=== PATIENT | female | born 1965 | race African-American/Black ===

== ENCOUNTER 2018-07-19 16:16 | Emergency (ER) | payer OTHER ==
[~2018-07-19] VITALS: Ht 160 cm; Wt 79.4 kg
--- OUTSIDE RECORDS SUMMARY | 2018-07-19 16:19 | XMS REPORT | Clinical Summary ---
Author Author [facility] Organization [facility] Address Unknown Phone Unavailable Care Team Providers Care Melt Room Operator Name Role Phone Asked, No Pcp PCP Unavailable Allergies No Known Allergies Medications End Date Status Medication Sig Dispensed Refills Start Date 07/07/2018 cephalexin (KEFLEX) 500 Take 1 14 capsule 0 201 MG capsule capsule (500 8 mg total) by mouth 2 (two) times a day for 7 days. Active Problems Not on file Encounters Care Team Description Date Type Specialty Tapan Leiva MD Altered mental status, unspecified altered mental status type (Primary Dx); Alcoholic intoxication without complication (HCC); Possible Acute UTI 06/29/2018 Emergency Emergency Medicine - 06/30/2018 after 07/18/2017 Social History Date Tobacco Use Types Packs/Day Years Used Never Smoker Smokeless Tobacco: Never Used Alcohol Use Drinks/Week oz/Week Comments Yes pt had 5 shots of gin tonight Sex Assigned at Date Recorded Not on file Industry Job Start Date Occupation Not on file Not on file Not on file Travel End Travel History Travel Start No recent travel history available. Last Filed Vital Signs Time Taken Vital Sign Reading 06/30/2018 3:00 AM DEPENDENCY DIRECTOR Blood Pressure 128/70 06/30/2018 3:00 AM DEPENDENCY DIRECTOR Pulse 76 06/30/2018 1:48 AM DEPENDENCY DIRECTOR Temperature 36.4 C (97.5 F) 06/30/2018 3:00 AM DEPENDENCY DIRECTOR Respiratory Rate 17 06/30/2018 3:00 AM DEPENDENCY DIRECTOR Oxygen Saturation 98% - Inhaled Oxygen - Concentration - Weight - 06/29/2018 11:52 PM DEPENDENCY DIRECTOR Height 160 cm (5' 3") - Body Mass Index - Plan of Treatment Health Maintenance Due Date Last Done Comments CERVICAL CANCER SCREENING 1985 BREAST CANCER SCREENING 2014 COLON CANCER SCREENING 2014 SHINGRIX VACCINE (1 of 2) 2014 INFLUENZA VACCINE 03/13/2018 HEPATITIS B VACCINES Aged Out No longer eligible based on patient's age to complete this topic IPV VACCINES Aged Out No longer eligible based on patient's age to complete this topic MENINGOCOCCAL VACCINE Aged Out No longer eligible based on patient's age to complete this topic Procedures Comments Procedure Name Priority Date/Time Associated Diagnosis CT HEAD WO CONTRAST STAT 06/30/2018 1:44 AM DEPENDENCY DIRECTOR URINE DRUGS OF ABUSE STAT 06/30/2018 SCREEN 1:15 AM DEPENDENCY DIRECTOR URINALYSIS SCREEN AND STAT 06/30/2018 MICROSCOPY, WITH REFLEX 1:15 AM DEPENDENCY DIRECTOR TO CULTURE GRAM STAIN STAT 06/30/2018 1:15 AM DEPENDENCY DIRECTOR URINE CULTURE STAT 06/30/2018 1:15 AM DEPENDENCY DIRECTOR ECG ED PRELIMINARY Routine 06/30/2018 INTERPRETATION 12:40 AM DEPENDENCY DIRECTOR POC GLUCOSE Routine 06/29/2018 11:56 PM DEPENDENCY DIRECTOR ECG 12-LEAD STAT 06/29/2018 11:54 PM DEPENDENCY DIRECTOR ALCOHOL LEVEL, BLOOD STAT 06/29/2018 11:50 PM DEPENDENCY DIRECTOR HCG QUALITATIVE, SERUM STAT 06/29/2018 SCREEN 11:50 PM DEPENDENCY DIRECTOR TROPONIN STAT 06/29/2018 11:50 PM DEPENDENCY DIRECTOR ESTIMATED GFR STAT 06/29/2018 11:50 PM DEPENDENCY DIRECTOR COMPREHENSIVE METABOLIC STAT 06/29/2018 PANEL 11:50 PM DEPENDENCY DIRECTOR HC COMPLETE BLD COUNT STAT 06/29/2018 W/AUTO DIFF 11:50 PM DEPENDENCY DIRECTOR after 07/18/2017 Results * CT Head Wo Contrast (06/30/2018 1:44 AM DEPENDENCY DIRECTOR) Narrative Performed At EXAMINATION: CT HEAD WO CONTRAST [facility] CLINICAL HISTORY: AMSEtOH usepossible fall injury COMPARISON:None. TECHNIQUE: Noncontrast enhanced images of the brain were obtained from the skull base to the vertex. Both soft tissue and bone reconstruction algorithms were performed. CT scans are performed using radiation dose reduction techniques (iterative reconstruction and/or automated exposure control). Technical factors are evaluated and adjusted to ensure appropriate moderation of exposure. Automated dose management technology is applied to adjust radiation exposure while achieving a diagnostic quality image. FINDINGS: Mild generalized brain parenchymal volume loss. Nonspecific hypoattenuation of the supratentorial white matter, likely chronic microangiopathic changes. Mild cerebrovascular calcifications. The brain parenchyma is otherwise unremarkable. The carlisle-white matter differentiation is preserved. No evidence of acute intra or extra-axial hemorrhage, mass, mass effect or acute territorial infarction. There is no acute hydrocephalus. Basal cisterns are patent. No acute soft tissue hematoma or laceration. No skull fractures or aggressive bony lesions. Paranasal sinuses and mastoid air cells are clear. Orbits are normal. IMPRESSION: No acute intracranial abnormality identified. [facility]-[id number] Procedure Note Hm Interface, Radiology Results Incoming - 06/30/2018 1:49 AM DEPENDENCY DIRECTOR EXAMINATION: CT HEAD WO CONTRAST CLINICAL HISTORY: AMS EtOH use possible fall injury COMPARISON: None. TECHNIQUE: Noncontrast enhanced images of the brain were obtained from the skull base to the vertex. Both soft tissue and bone reconstruction algorithms were performed. CT scans are performed using radiation dose reduction techniques (iterative reconstruction and/or automated exposure control). Technical factors are evaluated and adjusted to ensure appropriate moderation of exposure. Automated dose management technology is applied to adjust radiation exposure while achieving a diagnostic quality image. FINDINGS: Mild generalized brain parenchymal volume loss. Nonspecific hypoattenuation of the supratentorial white matter, likely chronic microangiopathic changes. Mild cerebrovascular calcifications. The brain parenchyma is otherwise unremarkable. The carlisle-white matter differentiation is preserved. No evidence of acute intra or extra-axial hemorrhage, mass, mass effect or acute territorial infarction. There is no acute hydrocephalus. Basal cisterns are patent. No acute soft tissue hematoma or laceration. No skull fractures or aggressive bony lesions. Paranasal sinuses and mastoid air cells are clear. Orbits are normal. IMPRESSION: No acute intracranial abnormality identified. [facility]-[id number] Performing Organization Address City/State/Zipcode Phone Number [facility] [address] [place] [address] * Urinalysis screen and microscopy, with reflex to culture (06/30/2018 1:15 AM DEPENDENCY DIRECTOR) Specimen site Catheterized [facility] Color, UA Straw [facility] Appearance, UA Clear [facility] Specific gravity, UA 1.004 1.001 - 1.030 [facility] pH, UA 6.0 5.0 - 9.0 [facility] Protein, UA Negative Negative [facility] Glucose, UA Negative Negative [facility] Ketones, UA Negative Negative [facility] Bilirubin, UA Negative Negative [facility] Blood, UA Small (A) Negative [facility] Nitrite, UA Negative Negative [facility] Urobilinogen, UA <2.0 <2.0 E.U./dL [facility] Leukocyte esterase, UA Moderate (A) Negative [facility] Epithelial cells, UA 3 /HPF [facility] WBC, UA 3 0 - 4 /HPF [facility] RBC, UA 3 0 - 5 /HPF [facility] Bacteria, UA Moderate (A) None seen [facility] Yeast, UA None seen [facility] Yeast with pseudohyphae, None seen [facility] Specimen Urine Performing Organization Address City/State/Zipcode Phone Number [facility] [place] [address] [place] [address] PATHOLOGY AND GENOMIC MEDICINE [facility] [id number] [place] [address] * Urine drugs of abuse screen (06/30/2018 1:15 AM DEPENDENCY DIRECTOR) Amphetamine screen, urine Negative [facility] Barbiturate screen, urine Negative [facility] Benzodiazepine screen, Negative [facility] urine [facility] Cannabinoid screen, urine Negative [facility] Cocaine screen, urine Negative [facility] Methadone metabolite Negative [facility] (EDDP), urine [facility] Opiates screen, urine Negative [facility] Phencyclidine screen, Negative [facility] urine [facility] Tricyclic screen, urine Negative [facility] Comment: [facility] Drug screen minimum concentration of detectability Amphetamines 1000 ng/mL Barbiturates 200 ng/mL Benzodiazepines 300 ng/mL Cocaine 300 ng/mL Methadone 300 ng/mL Opiates 300 ng/mL Phencyclidine 25 ng/mL Cannabinoids 50 ng/mL Tricyclics 1000 ng/mL Negative test results indicates presumptive evidence of lack of clinically significant drug concentration in this urine specimen. Positive test results are presumptive evidence of clinically significant drug concentration in this urine specimen. Testing performed for medical purposes only. Specimen Urine Performing Organization Address City/State/Zipcode Phone Number [facility] [place] [address] [place] [address] PATHOLOGY AND GENOMIC MEDICINE [facility] [address] * Gram stain (06/30/2018 1:15 AM DEPENDENCY DIRECTOR) Gram stain result Occasional WBC's [facility] Many Gram positive rods [facility] Comment: Specimen Information Specimen Source: Urine Specimen Site: Catheterized Specimen Urine - Catheterized Performing Organization Address City/[facility] Phone Number [facility] DEPARTMENT OF [address] [place] [address] PATHOLOGY AND GENOMIC MEDICINE [address] * Urine culture (06/30/2018 1:15 AM DEPENDENCY DIRECTOR) Urine culture isolate Mixed keyon <=10-3 col/cc [facility] Comment: HOSPITAL Specimen Information Specimen Source: Urine Specimen Site: Catheterized Specimen Urine - Catheterized Performing Organization Address [facility] Phone Number [facility] DEPARTMENT OF [address] [place] [address] PATHOLOGY AND GENOMIC MEDICINE [address] * ECG ED Preliminary Interpretation - Not an Order (06/30/2018 12:40 AM DEPENDENCY DIRECTOR) Narrative Performed At Tapan Leiva MD 07/01/20185:12 AM ECG ED Preliminary Interpretation - Not an Order Performed by: Tapan Leiva MD Authorized by: Tapan Leiva MD ECG reviewed by ED Physician in the absence of a glass cutter: yes Rate: ECG rate:66 ECG rate assessment: normal Rhythm: Rhythm: sinus rhythm Ectopy: Ectopy: none QRS: QRS axis:Normal Conduction: Conduction: normal ST segments: ST segments:Normal T waves: T waves: normal * POC glucose (06/29/2018 11:56 PM DEPENDENCY DIRECTOR) POC glucose 98 65 - 99 mg/dL LEONCIO WISEMAN Comment: [facility] Meter ID: [id number] Taxi Proprietor: Cristo Curlynicola Performing Organization Address City/[facility]/Zipcode Phone Number [facility] DEPARTMENT OF [address] [place] [address] PATHOLOGY AND GENOMIC MEDICINE [address] * ECG 12 lead (06/29/2018 11:54 PM DEPENDENCY DIRECTOR) Ventricular rate 66 [facility] Atrial rate 66 [facility] UT interval 188 [facility] QRSD interval 72 [facility] QT interval 390 [facility] QTC interval 408 [facility] P axis 1 58 [facility] QRS axis 1 27 [facility] T wave axis 27 [facility] EKG impression Sinus rhythm with fusion [facility] MUSE complexes-Cannot rule out Anterior infarct , age undetermined-Abnormal ECG-No previous ECGs available- Narrative Performed At Performing Organization Address [facility] Centercode Phone Number [facility] [address] [place] [address] * Estimated GFR (06/29/2018 11:50 PM DEPENDENCY DIRECTOR) Estimated GFR >=90 mL/min/1.73 m2 [facility] Comment: [facility] CatergoryUnitsInte rpretation G1 >=90 Normal or high G2 60-89Mildly decreased [id number] Mildly to moderately decreased [id number] Moderately to severely decreased G4 15-29Severely decreased G5 <15Kidney failure The eGFR was calculated using the Chronic Kidney Disease Epidemiology Collaboration (CKD-EPI) equation. Interpretation is based on recommendations of the National Kidney Foundation-Kidney Disease Outcomes Quality Initiative (NKF-KDOQI) published in 2014. Corrected result; previously reported as 86 on 06/30/2018 at 01:31 by I/AUT Specimen Plasma specimen Performing Organization Address City/[facility]/Zipcode Phone Number [facility] [place] [address] PATHOLOGY AND GENOMIC MEDICINE [address] * Troponin (06/29/2018 11:50 PM DEPENDENCY DIRECTOR) Troponin <0.30 0.00 - 0.30 ng/mL [facility] Comment: [facility] 0.11 - 1.49 ng/mlMay indicate increased risk of acute coronary syndrome. >=1.5 ng/ml Consistent with acute myocardial infarction. The diagnostic value of a single normal or non-diagnostic result is questionable.Serial samples at 2-6 hour intervals are required to rule out acute myocardial injury. Specimen Plasma specimen Performing Organization Address City/[facility]/[place] [address] PATHOLOGY AND GENOMIC MEDICINE [address] * CBC with platelet and differential (06/29/2018 11:50 PM DEPENDENCY DIRECTOR) WBC 11.4 (H) 4.5 - 11.0 k/uL [facility] RBC 4.30 4.20 - 5.50 m/uL [facility] HGB 12.4 12.0 - 16.0 g/dL [facility] HCT 38.7 37.0 - 47.0 % [facility] MCV 90.0 82.0 - 100.0 fL [facility] MCH 28.8 27.0 - 34.0 pg [facility] MCHC 32.0 31.0 - 37.0 g/dL [facility] RDW - SD 39.7 37.0 - 55.0 fL [facility] MPV 9.8 6.9 - 11.0 fL [facility] Platelet count 281 150 - 400 K/uL [facility] Nucleated RBC 0.00 /100 WBC [facility] Neutrophils 88.1 (H) 39.0 - 69.0 % [facility] Lymphocytes 8.9 (L) 25.0 - 45.0 % [facility] Monocytes 2.5 0.0 - 10.0 % [facility] Eosinophils 0.0 0.0 - 5.0 % [facility] Basophils 0.1 0.0 - 1.0 % [facility] Immature granulocytes 0.4 0.0 - 1.0 % [facility] Specimen Blood Performing Organization Address City/[facility]/Zipcode Phone Number [facility] [place] [id number] [place] [address] PATHOLOGY AND GENOMIC MEDICINE [address] * hCG qualitative, serum screen (06/29/2018 11:50 PM DEPENDENCY DIRECTOR) hCG qualitative, serum NegativeComment: Sensitivity [facility] of HCG test: 25 mIU/mL [facility] Specimen Blood Performing Organization Address City/State/[facility] Centercode Phone Number [facility] [place] [address] PATHOLOGY AND GENOMIC MEDICINE [address] * Alcohol level, blood (06/29/2018 11:50 PM DEPENDENCY DIRECTOR) Alcohol 126.0 mg/dL [facility] Comment: [facility] Normal None Detected Legal Intoxication in [place]80 mg/dL (0.08%) - Whole Blood Toxic Concentration 200 mg/dL (0.2%) Potentially Fatal3 50 - 500 mg/dL (0.35 - 0.5%) Alcohol percent 0.126 % [facility] Specimen Plasma specimen Performing Organization Address City/State/[facility] Centercode Phone Number [facility] [place] [address] PATHOLOGY AND GENOMIC MEDICINE [address] * Comprehensive metabolic panel (06/29/2018 11:50 PM DEPENDENCY DIRECTOR) Sodium 140 135 - 148 mEq/L [facility] Potassium 3.8 3.5 - 5.0 mEq/L [facility] Chloride 102 98 - 112 mEq/L [facility] CO2 24 24 - 31 mEq/L [facility] Anion gap 14@ANIO 7 - 15 mEq/L [facility] BUN 13 6 - 20 mg/dL [facility] Creatinine 0.78 0.50 - 0.90 mg/dL [facility] Glucose 99 65 - 99 mg/dL [facility] Calcium 9.9 8.3 - 10.2 mg/dL [facility] Protein 7.5 6.3 - 8.3 g/dL [facility] Albumin 4.3 3.5 - 5.0 g/dL [facility] A/G ratio 1.3 0.7 - 3.8 [facility] Alkaline phosphatase 58 35 - 104 U/L [facility] AST 33 10 - 35 U/L [facility] ALT 23 5 - 50 U/L [facility] Total bilirubin <0.2 0.2 - 1.2 mg/dL [facility] Specimen Plasma specimen Performing Organization Address City/State/Zipcode Phone Number [facility] [place] [address] [place] [address] PATHOLOGY AND GENOMIC MEDICINE [facility] [address] after 07/18/2017 Insurance Payer Benefit Subscriber ID Type Phone Address Plan / Group xxxxxxxxx [employer] Advance Directives Patient has advance care planning documents on file. For more information, caron marcos contact: Leoncio Wiseman [address] [place] [address]
--- OUTSIDE RECORDS SUMMARY | 2018-07-19 16:19 | XMS REPORT ---
Author Author [facility] Address Unknown Phone Unavailable Care Team Providers Care Delicatessen Slicer Name Role Phone UNKNOWN, REFFERING PP Unavailable Payers Payer Name Policy Type Policy Number Effective Date Expiration Date Problems This patient has no known problems. Allergies, Adverse Reactions, Alerts Allergy Name Allergy Type Status Severity Reaction(s) Onset Date Inactive Date Treating Clinician Comments No Known Allergies DA Active U 2018-06-27 00:00:00 No Known Allergies DA Active U 2018-06-09 00:00:00 Medications This patient has no known medications. Encounters Start Date/Time End Date/Time Encounter Type Admission Type Attending Clinicians Care Facility Care Department Encounter ID 2016-12-23 13:40:00 2016-12-23 13:40:00 Emergency E [facility] MED [id number]
== END 2018-07-19 17:30 | disposition home or self-care (01) ==
LOC: FSED 16:16
DX: M72.2 Plantar fascial fibromatosis (principal)
CPT/HCPCS: 99283

== ENCOUNTER 2018-08-15 16:34 | Emergency (ER) | payer OTHER ==
[~2018-08-15] VITALS: Ht 160 cm; Wt 65.8 kg
--- OUTSIDE RECORDS SUMMARY | 2018-08-15 16:36 | XMS REPORT | Clinical Summary ---
Author Author [facility] Organization [facility] Address Unknown Phone Unavailable Care Team Providers [employer] Mechanic Name Role Phone Asked, No Pcp PCP [...] 06/29/2018 Emergency Emergency Medicine - 06/30/2018 after 08/14/2017 Social History Date Tobacco Use Types Packs/Day [...] Taken Vital Sign Reading 06/30/2018 3:00 AM DOCUMENT CLERK Blood Pressure 128/70 06/30/2018 3:00 AM DOCUMENT CLERK Pulse 76 06/30/2018 1:48 AM DOCUMENT CLERK Temperature 36.4 C (97.5 F) 06/30/2018 3:00 AM DOCUMENT CLERK Respiratory Rate 17 06/30/2018 3:00 AM DOCUMENT CLERK Oxygen Saturation 98% - Inhaled Oxygen - Concentration - Weight - 06/29/2018 11:52 PM DOCUMENT CLERK Height 160 cm (5' 3") - Body Mass Index - Plan of Treatment Health Maintenance Due Date Last Done Comments CERVICAL CANCER SCREENING 1985 BREAST CANCER SCREENING 2014 COLON CANCER SCREENING 2014 SHINGLES VACCINES (1 of 2014 2) INFLUENZA VACCINE 03/13/2018 Procedures Comments Procedure Name Priority Date/Time Associated Diagnosis CT HEAD WO CONTRAST STAT 06/30/2018 1:44 AM DOCUMENT CLERK URINE DRUGS OF ABUSE STAT 06/30/2018 SCREEN 1:15 AM DOCUMENT CLERK URINALYSIS SCREEN AND STAT 06/30/2018 MICROSCOPY, WITH REFLEX 1:15 AM DOCUMENT CLERK TO CULTURE GRAM STAIN STAT 06/30/2018 1:15 AM DOCUMENT CLERK URINE CULTURE STAT 06/30/2018 1:15 AM DOCUMENT CLERK ECG ED PRELIMINARY Routine 06/30/2018 INTERPRETATION 12:40 AM DOCUMENT CLERK POC GLUCOSE Routine 06/29/2018 11:56 PM DOCUMENT CLERK ECG 12-LEAD STAT 06/29/2018 11:54 PM DOCUMENT CLERK ALCOHOL LEVEL, BLOOD STAT 06/29/2018 11:50 PM DOCUMENT CLERK HCG QUALITATIVE, SERUM STAT 06/29/2018 SCREEN 11:50 PM DOCUMENT CLERK TROPONIN STAT 06/29/2018 11:50 PM DOCUMENT CLERK ESTIMATED GFR STAT 06/29/2018 11:50 PM DOCUMENT CLERK COMPREHENSIVE METABOLIC STAT 06/29/2018 PANEL 11:50 PM DOCUMENT CLERK HC COMPLETE BLD COUNT STAT 06/29/2018 W/AUTO DIFF 11:50 PM DOCUMENT CLERK after 08/14/2017 Results * CT Head Wo Contrast (06/30/2018 1:44 AM DOCUMENT CLERK) Narrative Performed At EXAMINATION: CT HEAD WO [...] normal. IMPRESSION: No acute intracranial abnormality identified. [facility]-[id number] Procedure Note Interface, Radiology Results Incoming - 06/30/2018 1:49 AM DOCUMENT CLERK EXAMINATION: CT HEAD WO CONTRAST CLINICAL HISTORY: [...] normal. IMPRESSION: No acute intracranial abnormality identified. [facility]-[id number] Performing Organization Address City/State/Zipcode Phone Number [facility] [address] [place] [address] * Urinalysis screen and microscopy, with reflex to culture (06/30/2018 1:15 AM DOCUMENT CLERK) Specimen site Catheterized [facility] Color, UA Straw [facility] Appearance, UA Clear [facility] Specific gravity, UA 1.004 1.001 - 1.030 [facility] pH, UA 6.0 5.0 - 9.0 [facility] Protein, UA Negative Negative [facility] Glucose, UA Negative Negative [facility] Ketones, UA Negative Negative [facility] Bilirubin, UA Negative Negative [facility] Blood, UA Small (A) Negative [facility] Nitrite, UA Negative Negative [facility] Urobilinogen, UA <2.0 <2.0 E.U./dL [facility] Leukocyte esterase, UA Moderate (A) Negative [facility] Epithelial cells, UA 3 /HPF [facility] WBC, UA 3 0 - 4 /HPF [facility] RBC, UA 3 0 - 5 /HPF [facility] Bacteria, UA Moderate (A) None seen [facility] Yeast, UA None seen [facility] Yeast with pseudohyphae, None seen [facility] Specimen Urine Performing Organization Address City/State/Zipcode Phone Number [facility] [place] [address] [place] [address] PATHOLOGY AND GENOMIC MEDICINE [facility] [id number] [place] [address] * Urine drugs of abuse screen (06/30/2018 1:15 AM DOCUMENT CLERK) Amphetamine screen, urine Negative [facility] Barbiturate screen, urine Negative [facility] Benzodiazepine screen, Negative [facility] urine [facility] Cannabinoid screen, urine Negative [facility] Cocaine screen, urine Negative [facility] Methadone metabolite Negative [facility] (EDDP), urine [facility] Opiates screen, urine Negative [facility] Phencyclidine screen, Negative [facility] urine [facility] Tricyclic screen, urine Negative [facility] Comment: [facility] Drug screen minimum concentration of detectability Amphetamines [...] purposes only. Specimen Urine Performing Organization Address [facility] Phone Number [facility] DEPARTMENT OF [address] [place] [address] PATHOLOGY AND GENOMIC MEDICINE [address] * Gram stain (06/30/2018 1:15 AM DOCUMENT CLERK) Gram stain result Occasional WBC's [facility] Many Gram positive rods [facility] Comment: Specimen Information Specimen Source: Urine Specimen Site: Catheterized Specimen Urine - Catheterized Performing Organization Address [facility] Phone Number [facility] DEPARTMENT OF [address] [place] [address] PATHOLOGY AND GENOMIC MEDICINE [address] * Urine culture (06/30/2018 1:15 AM DOCUMENT CLERK) Urine culture isolate Mixed keyon <=10-3 col/cc LEONC[facility] WISEMAN Comment: HOSPITAL Specimen Information Specimen Source: Urine Specimen Site: Catheterized Specimen Urine - Catheterized Performing Organization Address [facility] Phone Number [facility] DEPARTMENT OF [address] [place] [address] PATHOLOGY AND GENOMIC MEDICINE [address] * ECG ED Preliminary Interpretation - Not an Order (06/30/2018 12:40 AM DOCUMENT CLERK) Narrative Performed At Tapan Leiva MD 07/01/20185:12 AM ECG ED Preliminary Interpretation - Not an Order Performed by: Tapan Leiva MD Authorized by: Tapan Leiva MD ECG reviewed by ED Physician in the absence of a family practice physician: yes Rate: ECG rate:66 ECG rate assessment: normal Rhythm: Rhythm: sinus rhythm Ectopy: Ectopy: none QRS: QRS axis:Normal Conduction: Conduction: normal ST segments: ST segments:Normal T waves: T waves: normal * POC glucose (06/29/2018 11:56 PM DOCUMENT CLERK) POC glucose 98 65 - 99 mg/dL LEONCIO ROSAIST Comment: [facility] Meter ID: [id number] Radiology Services Manager: Cristo Kong Performing Organization Address [facility]/Zipcode Phone Number [facility] DEPARTMENT OF [address] [place] [address] PATHOLOGY AND GENOMIC MEDICINE [address] * ECG 12 lead (06/29/2018 11:54 PM DOCUMENT CLERK) Ventricular rate 66 [facility] Atrial rate 66 [facility] [place] interval 188 [facility] QRSD interval 72 [facility] QT interval 390 [facility] QTC interval 408 [facility] P axis 1 58 [facility] QRS axis 1 27 [facility] T wave axis 27 [facility] EKG impression Sinus rhythm with fusion [facility] MUSE complexes-Cannot rule out Anterior infarct , age undetermined-Abnormal ECG-No previous ECGs available- Narrative Performed At Performing Organization Address City/[facility]/Zipcode Phone Number [facility] MUSE [address] [place] [address] * Estimated GFR (06/29/2018 11:50 PM DOCUMENT CLERK) Estimated GFR >=90 mL/min/1.73 m2 LEONCIO WISEMAN Comment: [facility] CatergoryUnitsInte rpretation G1 >=90 Normal or high G2 60-89Mildly decreased [id number] Mildly to moderately decreased C3r80-54 Moderately to severely decreased G4 15-29Severely decreased G5 <15Kidney failure The eGFR was calculated using the Chronic Kidney Disease Epidemiology Collaboration (CKD-EPI) equation. Interpretation is based on recommendations of the National Kidney Foundation-Kidney Disease Outcomes Quality Initiative (NKF-KDOQI) published in 2014. Corrected result; previously reported as 86 on 06/30/2018 at 01:31 by I/AUT Specimen Plasma specimen Performing Organization Address City/State/Zipcode Phone Number [facility] [place] [address] [place] [address] PATHOLOGY AND GENOMIC MEDICINE [address] * Troponin (06/29/2018 11:50 PM DOCUMENT CLERK) Troponin <0.30 0.00 - 0.30 ng/mL LEONCIO WISEMAN Comment: [facility] 0.11 - 1.49 ng/mlMay indicate increased risk of acute coronary syndrome. >=1.5 ng/ml Consistent with acute myocardial infarction. The diagnostic value of a single normal or non-diagnostic result is questionable.Serial samples at 2-6 hour intervals are required to rule out acute myocardial injury. Specimen Plasma specimen Performing Organization Address City/State/[place] [address] PATHOLOGY AND GENOMIC MEDICINE [address] * CBC with platelet and differential (06/29/2018 11:50 PM DOCUMENT CLERK) WBC 11.4 (H) 4.5 - 11.0 k/uL [facility] RBC 4.30 4.20 - 5.50 m/uL [facility] HGB 12.4 12.0 - 16.0 g/dL [facility] HCT 38.7 37.0 - 47.0 % [facility] MCV 90.0 82.0 - 100.0 fL [facility] MCH 28.8 27.0 - 34.0 pg [facility] MCHC 32.0 31.0 - 37.0 g/dL [facility] RDW - SD 39.7 37.0 - 55.0 fL [facility] MPV 9.8 6.9 - 11.0 fL [facility] Platelet count 281 150 - 400 K/uL [facility] Nucleated RBC 0.00 /100 WBC [facility] Neutrophils 88.1 (H) 39.0 - 69.0 % [facility] Lymphocytes 8.9 (L) 25.0 - 45.0 % [facility] Monocytes 2.5 0.0 - 10.0 % [facility] Eosinophils 0.0 0.0 - 5.0 % [facility] Basophils 0.1 0.0 - 1.0 % [facility] Immature granulocytes 0.4 0.0 - 1.0 % [facility] Specimen Blood Performing Organization Address City/[facility]/[place] [address] PATHOLOGY AND GENOMIC MEDICINE [address] * hCG qualitative, serum screen (06/29/2018 11:50 PM DOCUMENT CLERK) hCG qualitative, serum NegativeComment: Sensitivity [facility] of HCG test: 25 mIU/mL [facility] Specimen Blood Performing Organization Address City/State/[place] [address] PATHOLOGY AND GENOMIC MEDICINE [address] * Alcohol level, blood (06/29/2018 11:50 PM DOCUMENT CLERK) Alcohol 126.0 mg/dL [facility] Comment: [facility] Normal None Detected Legal Intoxication in [place]80 mg/dL (0.08%) - Whole Blood Toxic Concentration 200 mg/dL (0.2%) Potentially Fatal3 50 - 500 mg/dL (0.35 - 0.5%) Alcohol percent 0.126 % [facility] Specimen Plasma specimen Performing Organization Address City/[facility] [place] [address] PATHOLOGY AND GENOMIC MEDICINE [address] * Comprehensive metabolic panel (06/29/2018 11:50 PM DOCUMENT CLERK) Sodium 140 135 - 148 mEq/L [facility] Potassium 3.8 3.5 - 5.0 mEq/L [facility] Chloride 102 98 - 112 mEq/L [facility] CO2 24 24 - 31 mEq/L [facility] Anion gap 14@ANIO 7 - 15 mEq/L [facility] BUN 13 6 - 20 mg/dL [facility] Creatinine 0.78 0.50 - 0.90 mg/dL [facility] Glucose 99 65 - 99 mg/dL [facility] Calcium 9.9 8.3 - 10.2 mg/dL [facility] Protein 7.5 6.3 - 8.3 g/dL [facility] Albumin 4.3 3.5 - 5.0 g/dL [facility] A/G ratio 1.3 0.7 - 3.8 [facility] Alkaline phosphatase 58 35 - 104 U/L [facility] AST 33 10 - 35 U/L [facility] ALT 23 5 - 50 U/L [facility] Total bilirubin <0.2 0.2 - 1.2 mg/dL [facility] Specimen Plasma specimen Performing Organization Address City/State/Zipcode Phone Number [facility] [place] [address] [place] [address] PATHOLOGY AND GENOMIC MEDICINE [facility] [address] after 08/14/2017 Insurance Payer Benefit Subscriber ID Type Phone Address Plan / Group xxxxxxxxx [employer] Advance Directives Patient has advance care planning documents on file. For more information, caron marcos contact: Leoncio Wiseman [phone] [place] [address]
[2018-08-15 17:24] VITALS: BP 150/89
== END 2018-08-15 17:28 | disposition home or self-care (01) ==
LOC: FSED 16:34
DX: R51 Headache (principal); S00.03XA Contusion of scalp, initial encounter; W22.09XA Striking against other stationary object, initial encounter; I10 Essential (primary) hypertension
CPT/HCPCS: 99282

== ENCOUNTER 2018-09-23 15:25 | Emergency (ER) | payer OTHER ==
[~2018-09-23] VITALS: Ht 160 cm; Wt 65.8 kg
--- OUTSIDE RECORDS SUMMARY | 2018-09-23 15:27 | XMS REPORT | Clinical Summary ---
Author Author [facility] [employer] Address Unknown Phone Unavailable Care Team Providers Care Project Scientist Name Role Phone Asked, No Pcp PCP [...] 06/29/2018 Emergency Emergency Medicine - 06/30/2018 after 09/22/2017 Social History Date Tobacco Use Types Packs/Day [...] Taken Vital Sign Reading 06/30/2018 3:00 AM METALLURGICAL LABORATORY ASSISTANT Blood Pressure 128/70 06/30/2018 3:00 AM METALLURGICAL LABORATORY ASSISTANT Pulse 76 06/30/2018 1:48 AM METALLURGICAL LABORATORY ASSISTANT Temperature 36.4 C (97.5 F) 06/30/2018 3:00 AM METALLURGICAL LABORATORY ASSISTANT Respiratory Rate 17 06/30/2018 3:00 AM METALLURGICAL LABORATORY ASSISTANT Oxygen Saturation 98% - Inhaled Oxygen - Concentration - Weight - 06/29/2018 11:52 PM METALLURGICAL LABORATORY ASSISTANT Height 160 cm (5' 3") - Body Mass Index - Plan of Treatment Health Maintenance Due Date Last Done Comments CERVICAL CANCER SCREENING 1985 BREAST CANCER SCREENING 2014 COLON CANCER SCREENING 2014 SHINGLES VACCINES (1 of 2014 2) INFLUENZA VACCINE 03/13/2018 Procedures Comments Procedure Name Priority Date/Time Associated Diagnosis CT HEAD WO CONTRAST STAT 06/30/2018 1:44 AM METALLURGICAL LABORATORY ASSISTANT URINE DRUGS OF ABUSE STAT 06/30/2018 SCREEN 1:15 AM METALLURGICAL LABORATORY ASSISTANT URINALYSIS SCREEN AND STAT 06/30/2018 MICROSCOPY, WITH REFLEX 1:15 AM METALLURGICAL LABORATORY ASSISTANT TO CULTURE GRAM STAIN STAT 06/30/2018 1:15 AM METALLURGICAL LABORATORY ASSISTANT URINE CULTURE STAT 06/30/2018 1:15 AM METALLURGICAL LABORATORY ASSISTANT ECG ED PRELIMINARY Routine 06/30/2018 INTERPRETATION 12:40 AM METALLURGICAL LABORATORY ASSISTANT POC GLUCOSE Routine 06/29/2018 11:56 PM METALLURGICAL LABORATORY ASSISTANT ECG 12-LEAD STAT 06/29/2018 11:54 PM METALLURGICAL LABORATORY ASSISTANT ALCOHOL LEVEL, BLOOD STAT 06/29/2018 11:50 PM METALLURGICAL LABORATORY ASSISTANT HCG QUALITATIVE, SERUM STAT 06/29/2018 SCREEN 11:50 PM METALLURGICAL LABORATORY ASSISTANT TROPONIN STAT 06/29/2018 11:50 PM METALLURGICAL LABORATORY ASSISTANT ESTIMATED GFR STAT 06/29/2018 11:50 PM METALLURGICAL LABORATORY ASSISTANT COMPREHENSIVE METABOLIC STAT 06/29/2018 PANEL 11:50 PM METALLURGICAL LABORATORY ASSISTANT HC COMPLETE BLD COUNT STAT 06/29/2018 W/AUTO DIFF 11:50 PM METALLURGICAL LABORATORY ASSISTANT after 09/22/2017 Results * CT Head Wo Contrast (06/30/2018 1:44 AM METALLURGICAL LABORATORY ASSISTANT) Narrative Performed At EXAMINATION: CT HEAD WO [...] normal. IMPRESSION: No acute intracranial abnormality identified. [facility]-[id number] Procedure Note Interface, Radiology Results Incoming - 06/30/2018 1:49 AM METALLURGICAL LABORATORY ASSISTANT EXAMINATION: CT HEAD WO CONTRAST CLINICAL HISTORY: [...] normal. IMPRESSION: No acute intracranial abnormality identified. [facility]-[id number] Performing Organization Address City/State/Zipcode Phone Number [facility] [address] [place] [address] * Urinalysis screen and microscopy, with reflex to culture (06/30/2018 1:15 AM METALLURGICAL LABORATORY ASSISTANT) Specimen site Catheterized [facility] Color, UA Straw [facility] Appearance, UA Clear [facility] Specific gravity, UA 1.004 1.001 - 1.030 [facility] pH, UA 6.0 5.0 - 9.0 [facility] Protein, UA Negative Negative [facility] Glucose, UA Negative Negative [facility] Ketones, UA Negative Negative [facility] Bilirubin, UA Negative Negative [facility] Blood, UA Small (A) Negative [facility] Nitrite, UA Negative Negative [facility] Urobilinogen, UA <2.0 <2.0 E.U./dL [facility] Leukocyte esterase, UA Moderate (A) Negative [facility] Epithelial cells, UA 3 /HPF [facility] WBC, UA 3 0 - 4 /HPF [facility] RBC, UA 3 0 - 5 /HPF [facility] Bacteria, UA Moderate (A) None seen [facility] Yeast, UA None seen [facility] Yeast with pseudohyphae, None seen [facility] Specimen Urine Performing Organization Address City/State/Zipcode Phone Number [facility] [place] [address] [place] [address] PATHOLOGY AND GENOMIC MEDICINE [facility] [id number] [place] [address] * Urine drugs of abuse screen (06/30/2018 1:15 AM METALLURGICAL LABORATORY ASSISTANT) Amphetamine screen, urine Negative [facility] Barbiturate screen, urine Negative [facility] Benzodiazepine screen, Negative [facility] urine [facility] Cannabinoid screen, urine Negative [facility] Cocaine screen, urine Negative [facility] Methadone metabolite Negative [facility] (EDDP), urine [facility] Opiates screen, urine Negative [facility] Phencyclidine screen, Negative [facility] urine [facility] Tricyclic screen, urine Negative [facility] Comment: [facility] Drug screen minimum concentration of [...] purposes only. Specimen Urine Performing Organization Address [facility] Phone Number [facility] DEPARTMENT OF [address] [place] [address] PATHOLOGY AND GENOMIC MEDICINE [address] * Gram stain (06/30/2018 1:15 AM METALLURGICAL LABORATORY ASSISTANT) Gram stain result Occasional WBC's [facility] Many Gram positive rods [facility] Comment: Specimen Information Specimen Source: Urine Specimen Site: Catheterized Specimen Urine - Catheterized Performing Organization Address [facility] Phone Number [facility] DEPARTMENT OF [address] [place] [address] PATHOLOGY AND GENOMIC MEDICINE [address] * Urine culture (06/30/2018 1:15 AM METALLURGICAL LABORATORY ASSISTANT) Urine culture isolate Mixed keyon <=10-3 col/cc LEONCIO WISEMAN Comment: HOSPITAL Specimen Information Specimen Source: Urine Specimen Site: Catheterized Specimen Urine - Catheterized Performing Organization Address [facility] Phone Number [facility] DEPARTMENT OF [address] [place] [address] PATHOLOGY AND GENOMIC MEDICINE [address] * ECG ED Preliminary Interpretation - Not an Order (06/30/2018 12:40 AM METALLURGICAL LABORATORY ASSISTANT) Narrative Performed At Tapan Leiva MD 07/01/20185:12 AM ECG ED Preliminary Interpretation - Not an Order Performed by: Tapan Leiva MD Authorized by: Tapan Leiva MD ECG reviewed by ED Physician in the absence of a veneer clipper: yes Rate: ECG rate:66 ECG rate assessment: normal Rhythm: Rhythm: sinus rhythm Ectopy: Ectopy: none QRS: QRS axis:Normal Conduction: Conduction: normal ST segments: ST segments:Normal T waves: T waves: normal * POC glucose (06/29/2018 11:56 PM METALLURGICAL LABORATORY ASSISTANT) POC glucose 98 65 - 99 mg/dL LEONCIO ROSAIST Comment: [facility] Meter ID: [id number] Gis Analyst Developer: Cristo Kong Performing Organization Address [facility]/Zipcode Phone Number [facility] DEPARTMENT OF [address] [place] [address] PATHOLOGY AND GENOMIC MEDICINE [address] * ECG 12 lead (06/29/2018 11:54 PM METALLURGICAL LABORATORY ASSISTANT) Ventricular rate 66 [facility] Atrial rate 66 [facility] NC interval 188 [facility] QRSD interval 72 [facility] QT interval 390 [facility] QTC interval 408 [facility] P axis 1 58 [facility] QRS axis 1 27 [facility] T wave axis 27 [facility] EKG impression Sinus rhythm with fusion [facility] MUSE complexes-Cannot rule out Anterior infarct , age undetermined-Abnormal ECG-No previous ECGs available- Narrative Performed At Performing Organization Address City/[facility]/Zipcode Phone Number [facility] MUSE [address] [place] [address] * Estimated GFR (06/29/2018 11:50 PM METALLURGICAL LABORATORY ASSISTANT) Estimated GFR >=90 mL/min/1.73 m2 LEONCIO WISEMAN Comment: [facility] CatergoryUnitsInte rpretation G1 >=90 Normal or high G2 60-89Mildly decreased [id number] Mildly to moderately decreased [id number] Moderately to severely decreased G4 15-29Severely decreased G5 <15Kidney failure The eGFR was calculated using the Chronic Kidney Disease Epidemiology Collaboration (CKD-EPI) equation. Interpretation is based on recommendations of the National Kidney Foundation-Kidney Disease Outcomes Quality Initiative (NKF-KDOQI) published in 2014. Corrected result; previously reported as 86 on 06/30/2018 at 01:31 by I/AUT Specimen Plasma specimen Performing Organization Address City/State/Zipcode Phone Number [facility] [place] [address] [place] [address] PATHOLOGY AND GENOMIC MEDICINE [address] * Troponin (06/29/2018 11:50 PM METALLURGICAL LABORATORY ASSISTANT) Troponin <0.30 0.00 - 0.30 ng/mL LEONCIO WISEMAN Comment: [facility] 0.11 - 1.49 ng/mlMay indicate increased risk of acute coronary syndrome. >=1.5 ng/ml Consistent with acute myocardial infarction. The diagnostic value of a single normal or non-diagnostic result is questionable.Serial samples at 2-6 hour intervals are required to rule out acute myocardial injury. Specimen Plasma specimen Performing Organization Address City/State/[place] [address] PATHOLOGY AND GENOMIC MEDICINE [address] * CBC with platelet and differential (06/29/2018 11:50 PM METALLURGICAL LABORATORY ASSISTANT) WBC 11.4 (H) 4.5 - 11.0 k/uL [facility] RBC 4.30 4.20 - 5.50 m/uL [facility] HGB 12.4 12.0 - 16.0 g/dL [facility] HCT 38.7 37.0 - 47.0 % [facility] MCV 90.0 82.0 - 100.0 fL [facility] MCH 28.8 27.0 - 34.0 pg [facility] MCHC 32.0 31.0 - 37.0 g/dL [facility] RDW - SD 39.7 37.0 - 55.0 fL [facility] MPV 9.8 6.9 - 11.0 fL [facility] Platelet count 281 150 - 400 K/uL [facility] Nucleated RBC 0.00 /100 WBC [facility] Neutrophils 88.1 (H) 39.0 - 69.0 % [facility] Lymphocytes 8.9 (L) 25.0 - 45.0 % [facility] Monocytes 2.5 0.0 - 10.0 % [facility] Eosinophils 0.0 0.0 - 5.0 % [facility] Basophils 0.1 0.0 - 1.0 % [facility] Immature granulocytes 0.4 0.0 - 1.0 % [facility] Specimen Blood Performing Organization Address City/[facility]/[place] [address] PATHOLOGY AND GENOMIC MEDICINE [address] * hCG qualitative, serum screen (06/29/2018 11:50 PM METALLURGICAL LABORATORY ASSISTANT) hCG qualitative, serum NegativeComment: Sensitivity [facility] of HCG test: 25 mIU/mL [facility] Specimen Blood Performing Organization Address City/State/[place] [address] PATHOLOGY AND GENOMIC MEDICINE [address] * Alcohol level, blood (06/29/2018 11:50 PM METALLURGICAL LABORATORY ASSISTANT) Alcohol 126.0 mg/dL [facility] Comment: [facility] Normal None Detected Legal Intoxication in [place]80 mg/dL (0.08%) - Whole Blood Toxic Concentration 200 mg/dL (0.2%) Potentially Fatal3 50 - 500 mg/dL (0.35 - 0.5%) Alcohol percent 0.126 % [facility] Specimen Plasma specimen Performing Organization Address City/[facility] [place] [address] PATHOLOGY AND GENOMIC MEDICINE [address] * Comprehensive metabolic panel (06/29/2018 11:50 PM METALLURGICAL LABORATORY ASSISTANT) Sodium 140 135 - 148 mEq/L [facility] Potassium 3.8 3.5 - 5.0 mEq/L [facility] Chloride 102 98 - 112 mEq/L [facility] CO2 24 24 - 31 mEq/L [facility] Anion gap 14@ANIO 7 - 15 mEq/L [facility] BUN 13 6 - 20 mg/dL [facility] Creatinine 0.78 0.50 - 0.90 mg/dL [facility] Glucose 99 65 - 99 mg/dL [facility] Calcium 9.9 8.3 - 10.2 mg/dL [facility] Protein 7.5 6.3 - 8.3 g/dL [facility] Albumin 4.3 3.5 - 5.0 g/dL [facility] A/G ratio 1.3 0.7 - 3.8 [facility] Alkaline phosphatase 58 35 - 104 U/L [facility] AST 33 10 - 35 U/L [facility] ALT 23 5 - 50 U/L [facility] Total bilirubin <0.2 0.2 - 1.2 mg/dL [facility] Specimen Plasma specimen Performing Organization Address City/State/Zipcode Phone Number [facility] [place] [address] [place] [address] PATHOLOGY AND GENOMIC MEDICINE [facility] [address] after 09/22/2017 Insurance Payer Benefit Subscriber ID Type Phone Address Plan / Group xxxxxxxxx [employer] Advance Directives Patient has advance care planning documents on file. For more information, caron marcos contact: Leoncio Wiseman [address] [place] [address]
[2018-09-23] MEDS ORDERED: ONDANSETRON HCL 4 MG ORAL DISINTEGRATING TAB PO ONE (15:45)
[2018-09-23] MEDS ORDERED: DIPHENHYDRAMINE HCL 25 MG CAP PO ONE (15:45)
[2018-09-23] MEDS ORDERED: KETOROLAC TROMETHAMINE 60 MG/2 ML VIAL IM ONE (15:45)
== END 2018-09-23 16:06 | disposition home or self-care (01) ==
LOC: FSED 15:25
DX: G44.211 Episodic tension-type headache, intractable (principal)
CPT/HCPCS: 99282; J1885; Q0162

== ENCOUNTER 2018-10-27 17:48 | Emergency (ER) | payer OTHER ==
[~2018-10-27] VITALS: Ht 160 cm; Wt 65.8 kg
--- OUTSIDE RECORDS SUMMARY | 2018-10-27 17:51 | XMS REPORT | Clinical Summary ---
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 Name Role Phone Asked, No Pcp PCP [...] 06/29/2018 Emergency Emergency Medicine - 06/30/2018 after 10/26/2017 Social History Date Tobacco Use Types Packs/Day [...] Taken Vital Sign Reading 06/30/2018 3:00 AM NURSE PARALEGAL Blood Pressure 128/70 06/30/2018 3:00 AM NURSE PARALEGAL Pulse 76 06/30/2018 1:48 AM NURSE PARALEGAL Temperature 36.4 C (97.5 F) 06/30/2018 3:00 AM NURSE PARALEGAL Respiratory Rate 17 06/30/2018 3:00 AM NURSE PARALEGAL Oxygen Saturation 98% - Inhaled Oxygen - Concentration - Weight - 06/29/2018 11:52 PM NURSE PARALEGAL Height 160 cm (5' 3") - Body Mass Index - Plan of Treatment Health Maintenance Due Date Last Done Comments CERVICAL CANCER SCREENING 1985 BREAST CANCER SCREENING 2014 COLON CANCER SCREENING 2014 SHINGLES VACCINES (#1) 2014 INFLUENZA VACCINE 03/13/2018 Procedures Comments Procedure Name Priority Date/Time Associated Diagnosis CT HEAD WO CONTRAST STAT 06/30/2018 1:44 AM NURSE PARALEGAL URINE DRUGS OF ABUSE STAT 06/30/2018 SCREEN 1:15 AM NURSE PARALEGAL URINALYSIS SCREEN AND STAT 06/30/2018 MICROSCOPY, WITH REFLEX 1:15 AM NURSE PARALEGAL TO CULTURE GRAM STAIN STAT 06/30/2018 1:15 AM NURSE PARALEGAL URINE CULTURE STAT 06/30/2018 1:15 AM NURSE PARALEGAL ECG ED PRELIMINARY Routine 06/30/2018 INTERPRETATION 12:40 AM NURSE PARALEGAL POC GLUCOSE Routine 06/29/2018 11:56 PM NURSE PARALEGAL ECG 12-LEAD STAT 06/29/2018 11:54 PM NURSE PARALEGAL ALCOHOL LEVEL, BLOOD STAT 06/29/2018 11:50 PM NURSE PARALEGAL HCG QUALITATIVE, SERUM STAT 06/29/2018 SCREEN 11:50 PM NURSE PARALEGAL TROPONIN STAT 06/29/2018 11:50 PM NURSE PARALEGAL ESTIMATED GFR STAT 06/29/2018 11:50 PM NURSE PARALEGAL COMPREHENSIVE METABOLIC STAT 06/29/2018 PANEL 11:50 PM NURSE PARALEGAL HC COMPLETE BLD COUNT STAT 06/29/2018 W/AUTO DIFF 11:50 PM NURSE PARALEGAL after 10/26/2017 Results * CT Head Wo Contrast (06/30/2018 1:44 AM NURSE PARALEGAL) Narrative Performed At EXAMINATION: CT HEAD WO [...] normal. IMPRESSION: No acute intracranial abnormality identified. [facility]-[id number] Procedure Note Interface, Radiology Results Incoming - 06/30/2018 1:49 AM NURSE PARALEGAL EXAMINATION: CT HEAD WO CONTRAST CLINICAL HISTORY: [...] normal. IMPRESSION: No acute intracranial abnormality identified. [facility]-[id number] Performing Organization Address City/State/Zipcode Phone Number [facility] [address] [place] [address] * Urinalysis screen and microscopy, with reflex to culture (06/30/2018 1:15 AM NURSE PARALEGAL) Specimen site Catheterized [facility] Color, UA Straw [facility] Appearance, UA Clear [facility] Specific gravity, UA 1.004 1.001 - 1.030 [facility] pH, UA 6.0 5.0 - 9.0 [facility] Protein, UA Negative Negative [facility] Glucose, UA Negative Negative [facility] Ketones, UA Negative Negative [facility] Bilirubin, UA Negative Negative [facility] Blood, UA Small (A) Negative [facility] Nitrite, UA Negative Negative [facility] Urobilinogen, UA <2.0 <2.0 E.U./dL [facility] Leukocyte esterase, UA Moderate (A) Negative [facility] Epithelial cells, UA 3 /HPF [facility] WBC, UA 3 0 - 4 /HPF [facility] RBC, UA 3 0 - 5 /HPF [facility] Bacteria, UA Moderate (A) None seen [facility] Yeast, UA None seen [facility] Yeast with pseudohyphae, None seen [facility] Specimen Urine Performing Organization Address City/State/Zipcode Phone Number [facility] [place] [address] [place] [address] PATHOLOGY AND GENOMIC MEDICINE [facility] [id number] [place] [address] * Urine drugs of abuse screen (06/30/2018 1:15 AM NURSE PARALEGAL) Amphetamine screen, urine Negative [facility] Barbiturate screen, urine Negative [facility] Benzodiazepine screen, Negative [facility] urine [facility] Cannabinoid screen, urine Negative [facility] Cocaine screen, urine Negative [facility] Methadone metabolite Negative [facility] ([facility]), urine [facility] Opiates screen, urine Negative [facility] Phencyclidine screen, Negative [facility] urine [facility] Tricyclic screen, urine Negative [facility] Comment: [facility] Drug screen minimum concentration of detectability Amphetamines [...] purposes only. Specimen Urine Performing Organization Address [facility] Phone Number [facility] DE[place] [id number] [place] [address] PATHOLOGY AND GENOMIC MEDICINE [address] * Gram stain (06/30/2018 1:15 AM NURSE PARALEGAL) Gram stain result Occasional WBC's [facility] Gram positive rods [facility] Comment: Specimen Information Specimen Source: Urine Specimen Site: Catheterized Specimen Urine - Catheterized Performing Organization Address [facility] Phone Number [facility] [place] [address] PATHOLOGY AND GENOMIC MEDICINE [address] * Urine culture (06/30/2018 1:15 AM NURSE PARALEGAL) Urine culture isolate Mixed keyon <=10-3 col/cc [facility] Comment: HOSPITAL Specimen Information Specimen Source: Urine Specimen Site: Catheterized Specimen Urine - Catheterized Performing Organization Address [facility] Phone Number [facility] DEPARTMENT OF [address] [place] [address] PATHOLOGY AND GENOMIC MEDICINE [address] * ECG ED Preliminary Interpretation - Not an Order (06/30/2018 12:40 AM NURSE [facility]ALEGAL) Narrative Performed At Tapan Leiva MD 07/01/20185:12 AM ECG ED Preliminary Interpretation - Not an Order Performed by: Tapan Leiva MD Authorized by: Tapan Leiva MD ECG reviewed by ED Physician in the absence of a mental health program manager: yes Rate: ECG rate:66 ECG rate assessment: normal Rhythm: Rhythm: sinus rhythm Ectopy: Ectopy: none QRS: QRS axis:Normal Conduction: Conduction: normal ST segments: ST segments:Normal T waves: T waves: normal * POC glucose (06/29/2018 11:56 PM NURSE PARALEGAL) POC glucose 98 65 - 99 mg/dL [facility] Comment: [facility] Meter ID: [id number] Academic Counselor: Cristo Kong Performing Organization Address [facility]/Zipcode Phone Number [facility] DEPARTMENT OF [address] [place] [address] PATHOLOGY AND GENOMIC MEDICINE [address] * ECG 12 lead (06/29/2018 11:54 PM NURSE PARALEGAL) Ventricular rate 66 [facility] Atrial rate 66 [facility] FL interval 188 [facility] QRSD interval 72 [facility] QT interval 390 [facility] QTC interval 408 [facility] P axis 1 58 [facility] QRS axis 1 27 [facility] T wave axis 27 [facility] EKG impression Sinus rhythm with fusion [facility] MUSE complexes-Cannot rule out Anterior infarct , age undetermined-Abnormal ECG-No previous ECGs available- Narrative Performed At Performing Organization Address City/[facility]/Zipcode Phone Number [facility] MUSE [address] [place] [address] * Estimated GFR (06/29/2018 11:50 PM NURSE PARALEGAL) Estimated GFR >=90 mL/min/1.73 m2 [facility] Comment: [facility] CatergoryUnitsInte rpretation G1 >=90 Normal or high G2 60-89Mildly decreased [id number] Mildly to moderately decreased [id number] Moderately to severely decreased G4 15-29Severely decreased G5 <15Kidney failure The eGFR was calculated using the Chronic Kidney Disease Epidemiology Collaboration (CKD-EPI) equation. Interpretation is based on recommendations of the National Kidney Foundation-Kidney Disease Outcomes Quality Initiative (NKF-KDOQI) published in 2014. Corrected result; previously reported as 86 on 06/30/2018 at 01:31 by I/AUT Specimen Plasma specimen Performing Organization Address City/State/Zipcode Phone Number [facility] [place] [address] [place] [address] PATHOLOGY AND GENOMIC MEDICINE [address] * Troponin (06/29/2018 11:50 PM NURSE PARALEGAL) Troponin <0.30 0.00 - 0.30 ng/mL [facility] Comment: [facility] 0.11 - 1.49 ng/mlMay indicate increased risk of acute coronary syndrome. >=1.5 ng/ml Consistent with acute myocardial infarction. The diagnostic value of a single normal or non-diagnostic result is questionable.Serial samples at 2-6 hour intervals are required to rule out acute myocardial injury. Specimen Plasma specimen Performing Organization Address City/State/[place] [address] PATHOLOGY AND GENOMIC MEDICINE [address] * CBC with platelet and differential (06/29/2018 11:50 PM NURSE PARALEGAL) WBC 11.4 (H) 4.5 - 11.0 k/uL [facility] RBC 4.30 4.20 - 5.50 m/uL [facility] HGB 12.4 12.0 - 16.0 g/dL [facility] HCT 38.7 37.0 - 47.0 % [facility] MCV 90.0 82.0 - 100.0 fL [facility] MCH 28.8 27.0 - 34.0 pg [facility] MCHC 32.0 31.0 - 37.0 g/dL [facility] RDW - SD 39.7 37.0 - 55.0 fL [facility] MPV 9.8 6.9 - 11.0 fL [facility] Platelet count 281 150 - 400 K/uL [facility] Nucleated RBC 0.00 /100 WBC [facility] Neutrophils 88.1 (H) 39.0 - 69.0 % [facility] Lymphocytes 8.9 (L) 25.0 - 45.0 % [facility] Monocytes 2.5 0.0 - 10.0 % [facility] Eosinophils 0.0 0.0 - 5.0 % [facility] Basophils 0.1 0.0 - 1.0 % [facility] Immature granulocytes 0.4 0.0 - 1.0 % [facility] Specimen Blood Performing Organization Address City/[facility]/[place] [address] PATHOLOGY AND GENOMIC MEDICINE [address] * hCG qualitative, serum screen (06/29/2018 11:50 PM NURSE PARALEGAL) hCG qualitative, serum NegativeComment: Sensitivity [facility] of HCG test: 25 mIU/mL [facility] Specimen Blood Performing Organization Address City/State/Zipcode Phone Number [facility] [place] [address] PATHOLOGY AND GENOMIC MEDICINE [address] * Alcohol level, blood (06/29/2018 11:50 PM NURSE PARALEGAL) Alcohol 126.0 mg/dL [facility] Comment: [facility] Normal None Detected Legal Intoxication in [place]80 mg/dL (0.08%) - Whole Blood Toxic Concentration 200 mg/dL (0.2%) Potentially Fatal3 50 - 500 mg/dL (0.35 - 0.5%) Alcohol percent 0.126 % [facility] Specimen Plasma specimen Performing Organization Address City/[facility] [place] [address] PATHOLOGY AND GENOMIC MEDICINE [address] * Comprehensive metabolic panel (06/29/2018 11:50 PM NURSE PARALEGAL) Sodium 140 135 - 148 mEq/L [facility] Potassium 3.8 3.5 - 5.0 mEq/L [facility] Chloride 102 98 - 112 mEq/L [facility] CO2 24 24 - 31 mEq/L [facility] Anion gap 14@ANIO 7 - 15 mEq/L [facility] BUN 13 6 - 20 mg/dL [facility] Creatinine 0.78 0.50 - 0.90 mg/dL [facility] Glucose 99 65 - 99 mg/dL [facility] Calcium 9.9 8.3 - 10.2 mg/dL [facility] Protein 7.5 6.3 - 8.3 g/dL [facility] Albumin 4.3 3.5 - 5.0 g/dL [facility] A/G ratio 1.3 0.7 - 3.8 [facility] Alkaline phosphatase 58 35 - 104 U/L [facility] AST 33 10 - 35 U/L [facility] ALT 23 5 - 50 U/L [facility] Total bilirubin <0.2 0.2 - 1.2 mg/dL [facility] Specimen Plasma specimen Performing Organization Address City/State/Zipcode Phone Number [facility] [place] [address] [place] [address] PATHOLOGY AND GENOMIC MEDICINE [facility] [address] after 10/26/2017 Insurance Payer Benefit Subscriber ID Type Phone Address Plan / Group xxxxxxxxx [employer] Advance Directives Patient has advance care planning documents on file. For more information, caron marcos contact: Leoncio Wiseman [address] [place] [address]
== END 2018-10-27 18:50 | disposition left against medical advice (07) ==
LOC: FSED 17:48
DX: R68.84 Jaw pain (principal); K08.89 Other specified disorders of teeth and supporting structures; I10 Essential (primary) hypertension

== ENCOUNTER 2019-06-24 11:25 | Emergency (ER) | payer OTHER ==
[~2019-06-24] VITALS: Ht 160 cm; Wt 65.8 kg
[2019-06-26] MEDS ORDERED: LISINOPRIL10 MG PO (12:07)
[2019-06-26] MEDS ORDERED: NEXIUM40 M1 PO (12:07)
== END 2019-06-24 12:04 | disposition home or self-care (01) ==
LOC: FSED 11:25
DX: S00.81XA Abrasion of other part of head, initial encounter (principal); W01.190A Fall on same level from slipping, tripping and stumbling with subsequent striking against furniture, initial encounter; Y92.003 Bedroom of unspecified non-institutional (private) residence as the place of occurrence of the external cause; I10 Essential (primary) hypertension
CPT/HCPCS: 99282

== ENCOUNTER → 2019-06-27 | Day surgery (SDC) | payer OTHER ==
--- NOTE | 2019-06-26 12:57 | Diagnostic Imaging Report ---
EXAMINATION: CHEST 2 VIEWS INDICATION: Pre-operative COMPARISON: None FINDINGS: LINES/TUBES:None LUNGS:The lungs are well-inflated. No focal consolidation or pulmonary edema. PLEURA:No pleural effusion or pneumothorax. MEDIASTINUM:The cardiomediastinal silhouette appears normal in size and shape. BONES/SOFT TISSUES:No acute osseous injury. ABDOMEN:No free air under the diaphragm. IMPRESSION: No focal pneumonia or pulmonary edema. Signed by: Jayce Miranda MD on 06/26/2019 12:54 PM
[~2019-06-27] MED LIST: BUPIVACAINE HCL 0.5% INJ 30 ML VIAL INJ ONE; CEFAZOLIN SOD 1 GM/NS 50ML 50 ML IV ONE; DEXAMETHASONE SOD PHOS INJ 4 MG/ML VIAL ONE; FENTANYL CITRATE/PF 100MCG/2 ML INJ ONE; KETOROLAC TROMETHAMINE 30 MG/ML VIAL ONE; LIDOCAINE HCL 2% LOCAL INJ 5 ML SDV VIAL INJ ONE; LISINOPRIL10 MG PO; MIDAZOLAM HCL 2 MG/2 ML VIAL ONE; NEXIUM40 M1 PO; ONDANSETRON HCL INJ 2MG/ML 2ML 2 MG/ML VIAL ONE; PROPOFOL IV EMULSION 10 MG/ML 20 ML VIAL ONE; SEVOFLURANE INHAL SOLN 250 ML PEN BTL ONE; TRAMADOL HCL 50 MG TAB ONE
[2019-06-27 09:30] VITALS: BP 122/88
--- NOTE | 2019-06-27 15:28 | Operative Report ---
DATE OF PROCEDURE: 06/27/2019 SURGEON: Hussein De DPM PREOPERATIVE DIAGNOSIS: Right foot heel spur. POSTOPERATIVE DIAGNOSIS: Right foot heel spur, retained foreign body suture from previous surgery. SURGEON: Jennifer Figueroa DPM (Charley) ATHLETIC INSTRUCTOR: Hussein De DPM ANESTHESIA: General with a postoperative block consisting of 10 mL of 0.5% Marcaine plain mixed with 1 mL of dexamethasone phosphate. HEMOSTASIS: Pneumatic thigh tourniquet set at 350 mmHg for a total time of approximately 20 minutes. PATHOLOGY: None. MATERIALS: One TLS drain, 2-0 Vicryl, 3-0 Vicryl. ESTIMATED BLOOD LOSS: Less than 10 mL. PROCEDURE NOTE: The patient was seen in the preoperative waiting room. The correct procedure and site was identified. The patient was brought to the operating room and placed on the operating table in supine position. General anesthesia was initiated. At this time, a well-padded pneumatic tourniquet was placed about the patient's right thigh. The right foot, ankle, and leg was scrubbed, prepped, and draped in the usual aseptic manner. The right foot, ankle, and leg was exsanguinated with an Esmarch bandage. The pneumatic thigh tourniquet was inflated to 350 mmHg for a total time of approximately 20 minutes. Attention was directed to the plantar medial aspect of the patient's right heel where a previous incision site was made with a superficial draining lesion noted. Utilizing a lazy-S type incision, the lesion was excised and the incision was carried down plantarly, medial inferiorly towards the level of the heel spur. Upon excision of the mid medial lesion, there was noted to be a deep retained what appeared to be a nylon suture. The incision was then carried down to the level of the plantar fascia where the dorsal and plantar groove was deepened. Utilizing curved Alex, the plantar fascia was cut approximately one-third to one-half. Next, utilizing an osteotome and mallet, the heel spur was resected and passed off to the back table. Utilizing a rasp, the heel spur was excised and confirmed via intraoperative fluoroscopy. The wound was then copiously irrigated with sterile saline. Capsule and deep tissue were reapproximated with 3-0 Vicryl, subcutaneous tissue with 4-0 Vicryl and the skin was closed using a simple interrupted sutures with 4-0 nylon. Incisions sites were dressed with Adaptic, 4x4s, Kerlix, Josesito wrap, and a postop shoe. The patient tolerated the procedure and anesthesia well. The patient was transferred to the postop recovery room. Vital signs stable and vascular status intact. The patient was monitored there for a short period time before being sent home with the following written and oral instructions. 1. Keep the dressing clean, dry, and intact. 2. The patient is to remain nonweightbearing in a postop shoe and to avoid any ambulation until being seen in the office. 3. The patient is given office number and should contact us if any problems arise. ULISES Vargas/JACK /[phone]
== END | disposition home or self-care (01) ==
LOC: OR 05:19
PROVIDERS: ATTEND Podiatrist Foot & Ankle Surgery
DX: M77.31 Calcaneal spur, right foot (principal); Z01.810 Encounter for preprocedural cardiovascular examination; Z01.812 Encounter for preprocedural laboratory examination; I10 Essential (primary) hypertension; M79.5 Residual foreign body in soft tissue
CPT/HCPCS: 28119; 71046; 81025; 93005; J0690; J1100; J1885; J2001; J2250; J2405; J2704; J3010

== ENCOUNTER 2020-01-07 13:11 | Emergency (ER) | payer OTHER ==
[~2020-01-07] VITALS: Ht 160 cm; Wt 65.8 kg
[~2020-01-07 13:11] MED LIST changes: -BUPIVACAINE HCL 0.5% INJ 30 ML VIAL INJ ONE; -CEFAZOLIN SOD 1 GM/NS 50ML 50 ML IV ONE; -DEXAMETHASONE SOD PHOS INJ 4 MG/ML VIAL ONE; -FENTANYL CITRATE/PF 100MCG/2 ML INJ ONE; -KETOROLAC TROMETHAMINE 30 MG/ML VIAL ONE; -LIDOCAINE HCL 2% LOCAL INJ 5 ML SDV VIAL INJ ONE; -MIDAZOLAM HCL 2 MG/2 ML VIAL ONE; -ONDANSETRON HCL INJ 2MG/ML 2ML 2 MG/ML VIAL ONE; -PROPOFOL IV EMULSION 10 MG/ML 20 ML VIAL ONE; -SEVOFLURANE INHAL SOLN 250 ML PEN BTL ONE; -TRAMADOL HCL 50 MG TAB ONE
--- OUTSIDE RECORDS SUMMARY | 2020-01-07 13:17 | XMS REPORT | Clinical Summary ---
Author Author [employer] Organization [employer] Address Unknown Phone Unavailable Care Team Providers Care Director Of Student Aid Name Role Phone Asked, No Pcp PCP Unavailable Allergies No Known Allergies Medications No known medications Active Problems Not on file Social History Date Tobacco Use Types Packs/Day Years Used Never Smoker Smokeless Tobacco: Never Used Drinks/Week oz/Week Comments Alcohol Use pt had 5 shots of gi n tonight Yes Sex Assigned at Date Recorded Not on file Industry Job Start Date Occupation Not on file Not on file Not on file Travel End Travel History Travel Start No recent travel history available. 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
--- OUTSIDE RECORDS SUMMARY | 2020-01-07 13:17 | XMS REPORT ---
Author Author [facility] t Organization [facility] Address [address] 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 Allergies, Adverse Reactions, Alerts Allergy Name Allergy Type Status Severity Reaction(s) Onset Date Inacti ve Date Treating Clinician Comments Source ibuprofen DA Active MO 2019-01-15 00:00:00 [facility] ibuprofen DA Active MO 2018-11-18 00:00:00 [facility] ibuprofen DA Active MO 2018-10-27 00:00:00 [facility] No Known Allergies DA Active U 2018-06-27 00:00:00 [facility] No Known Allergies DA Active U 2018-06-09 00:00:00 [facility] Social History Social Habit Start Date Stop Date Quantity Comments Source Sex Assigned At Facundo freyvarun Mullen Alcohol intake 2018-06-29 00:00:00 2018-06-29 00:00:00 Current drinker of alcohol (finding) Leoncio Mullen Alcohol Comment 2018-06-29 00:00:00 2018-06-29 00:00:00 pt had 5 shots of gin tonight Leoncio Mullen Smoking Status Start Date Stop Date Source Never smoker Leoncio zendejas Medications Ordered Medication Name Filled Medication Name Start Date Stop Da te Current Medication? Ordering Clinician Indication Dosage Frequency Signature (SIG) Comments Components Source Esomeprazole Magnesium (Nexium) 40 Mg Suspdr.pkt Esome prazole Magnesium (Nexium) 40 Mg Suspdr.pkt Yes 40 Daily [facility] Lisinopril 10 Mg Tablet Lisinopril 10 Mg Tablet Yes 10 Daily [facility] Procedures Procedure Date / Time Performed Performing Clinician [facility] e REMOVAL OF HEEL SPUR 2019-06-27 00:00:00 ROWENA KOCH [facility] X-ray of chest, two views 2019-06-26 00:00:00 Angela SANTOS CH I [facility] Plan of Care Planned Activity Planned Date Details Comments Source Future Scheduled Test 2020-03-13 00:00:00 INFLUENZA VACCINE [code = INFLUENZA VACCINE] Leoncio Mullen Future Scheduled Test 2014 00:00:00 BREAST CANCER SCRE ENING [code = BREAST CANCER SCREENING] [facility] Future Scheduled Test 2014 00:00:00 COLONOSCOPY SCREEN ING [code = COLONOSCOPY SCREENING] [facility] Future Scheduled Test 2014 00:00:00 SHINGLES VACCINES (#1) [code = SHINGLES VACCINES (#1)] [facility] Future Scheduled Test 1985 00:00:00 Screening for bety gnant neoplasm of cervix (procedure) [code = 903939200] [facility] Encounters Start Date/Time End Date/Time Encounter Type Admission Type Attendi [facility] Care Department Encounter ID Source 2019-08-21 15:10:00 2019-09-12 23:59:00 Discharged Recurring [facility] [id number] [facility] 2019-06-27 05:19:00 2019-06-27 05:19:00 Registered Surgical Day Car e 3 Angela SANTOS [facility] [id number] [facility] 2019-06-24 11:25:00 2019-06-24 12:04:00 Departed Emergency Room [facility] [id number] [facility] 2018-11-21 17:36:00 2018-11-21 17:36:00 Emergency E [facility] 7[facility] 2018-10-27 17:48:00 2018-10-27 18:50:00 Departed Emergency Room [facility] [id number] [facility] 2018 15:25:00 2018 16:06:00 Departed Emergency Room [facility] [id number] [facility] 2018-08-15 16:34:00 2018-08-15 17:28:00 Departed Emergency Room [facility] [id number] [facility] 2018-07-19 16:16:00 2018-07-19 17:30:00 Departed Emergency Room [facility] [id number] [facility] 2016-12-23 13:40:00 2016-12-23 13:40:00 Emergency E [facility] MED [id number] [facility] Results Test Description Test Time Test Comments Results Result Comments Source Urine Test 2019-06-27 06:42:00 Test Item Urine Test (test code = 2106-3) NEGATIVE NEGATIVE [facility] [id number] 12:54:00 [facility] [address] [address] Patient Name: RACHID VIERA MR #: [id number] : 1965 Age/Sex: 53/F Req #: [id number] Adm Physician: Ordered by: Angela SANTOS DPM Report #: [id number] Location: OR Room/Bed: Procedure: [id number] DX/ CHEST 2 VIEWS Exam Date: 06/26/19 Exam Time: 1155 REPORT STATUS: Signed EXAMINATION: CHEST 2 VIEWS INDICATION: Pre-operative COMPARISON: None FINDINGS: LINES/TUBES:None LUNGS:The lungs are well-inflated. No focal consolidation or pulmonary edema. PLEURA:No pleural effusion or pneumot horax. MEDIASTINUM:The cardiomediastinal silhouette appears normal in size and shape. BONES/SOFT TISSUES:No acute osseous injury. ABDOMEN:No free air under the diaphragm. IMPRESSION: No focal pneumonia or pulmonary edema. Signed by: Matthew De La Cruz MD on 06/26/2019 12:54 PM Dictated By: MATTHEW DE LA CRUZ MD [id number] Trans cribed By: DANIEL on 06/26/19 [id number] COPY TO: Angela SANTOS DPM URINALYSIS [id number] 16:49:00* Test Item Value Reference Range Interpretation Comments UA COLOR (test code = COLU) STRAW YELLOW UA APPEARANCE (test code = APPU) SLIGHT HAZY CLEAR A UA GLUCOSE DIPSTICK (test code = DGLUU) NEGATIVE mg/dL NEGATIVE UA BILIRUBIN DIPSTICK (test code = BILU) NEGATIVE NEGATIVE UA KETONE DIPSTICK (test code = KETU) NEGATIVE mg/dL NEGATIVE UA SPECIFIC GRAVITY (test code = SGU) <=1.005 1.001-1.035 UA BLOOD DIPSTICK (test code = SIOMARA) NEGATIVE NEGATIVE UA PH DIPSTICK (test code = UGO) 6.0 5.0-8.0 UA PROTEIN DIPSTICK (test code = PROU) NEGATIVE mg/dL Neg-15 UA UROBILINIOGEN DIPSTICK (test code = URO) 0.2 mg/dL 0.0-0.2 UA NITRITE DIPSTICK (test code = ELIN) NEGATIVE NEGATIVE UA LEUKOCYTE ESTERASE DIPSTICK (test code = LEUU) TRACE uL NEGA TIVE A UA MICROSCOPIC NEEDED? (test code = UAMICRO) YES UA WBC (test code = WBCU) 0-5 per HPF 0-5 UA RBC (test code = RBCU) 0-2 per HPF 0-5 UA EPITHELIAL CELLS (test code = EPIU) Many (>10/hpf) per HPF Few A UA BACTERIA (test code = BACU) FEW per HPF NONE URINALYSIS [id number] 16:47:00* Test Item Value Reference Range Interpretation Comments UA COLOR (test code = COLU) YELLOW UA APPEARANCE (test code = APPU) CLEAR UA GLUCOSE DIPSTICK (test code = DGLUU) NEGATIVE mg/dL NEGATIVE UA BILIRUBIN DIPSTICK (test code = BILU) NEGATIVE NEGATIVE UA KETONE DIPSTICK (test code = KETU) NEGATIVE mg/dL NEGATIVE UA SPECIFIC GRAVITY (test code = SGU) <=1.005 1.001-1.035 UA BLOOD DIPSTICK (test code = SIOMARA) NEGATIVE NEGATIVE UA PH DIPSTICK (test code = UGO) 6.0 5.0-8.0 UA PROTEIN DIPSTICK (test code = PROU) NEGATIVE mg/dL Neg-15 UA UROBILINIOGEN DIPSTICK (test code = URO) 0.2 mg/dL 0.0-0.2 UA NITRITE DIPSTICK (test code = ELIN) NEGATIVE NEGATIVE UA LEUKOCYTE ESTERASE DIPSTICK (test code = LEUU) TRACE uL NEGA TIVE A UA MICROSCOPIC NEEDED? (test code = UAMICRO) UA WBC (test code = WBCU) per HPF 0-5 UA RBC (test code = RBCU) per HPF 0-5 UA EPITHELIAL CELLS (test code = EPIU) per HPF Few UA BACTERIA (test code = BACU) per HPF NONE URINALYSIS [id number] 16:47:00* Test Item Value Reference Range Interpretation Comments UA COLOR (test code = COLU) YELLOW UA APPEARANCE (test code = APPU) CLEAR UA GLUCOSE DIPSTICK (test code = DGLUU) NEGATIVE mg/dL NEGATIVE UA BILIRUBIN DIPSTICK (test code = BILU) NEGATIVE NEGATIVE UA KETONE DIPSTICK (test code = KETU) NEGATIVE mg/dL NEGATIVE UA SPECIFIC GRAVITY (test code = SGU) <=1.005 1.001-1.035 UA BLOOD DIPSTICK (test code = SIOMARA) NEGATIVE NEGATIVE UA PH DIPSTICK (test code = UGO) 6.0 5.0-8.0 UA PROTEIN DIPSTICK (test code = PROU) NEGATIVE mg/dL Neg-15 UA UROBILINIOGEN DIPSTICK (test code = URO) 0.2 mg/dL 0.0-0.2 UA NITRITE DIPSTICK (test code = ELIN) NEGATIVE NEGATIVE UA LEUKOCYTE ESTERASE DIPSTICK (test code = LEUU) TRACE uL NEGA TIVE A UA MICROSCOPIC NEEDED? (test code = UAMICRO) UA WBC (test code = WBCU) per HPF 0-5 UA RBC (test code = RBCU) per HPF 0-5 UA EPITHELIAL CELLS (test code = EPIU) per HPF Few UA BACTERIA (test code = BACU) per HPF NONE COMPREHENSIVE METABOLIC [id number] 15:41:00* Test Item Value Reference Range Interpretation Comments SODIUM (test code = NA) 139 mmol/L 128-145 N POTASSIUM (test code = K) 3.8 mmol/L 3.5-5.1 N CHLORIDE (test code = CL) 102.0 mmol/L 98-107 N CARBON DIOXIDE (test code = CO2) 28.3 mmol/L 22-29 N ANION GAP (test code = GAP) 13 mmol/L 10-20 N GLUCOSE (test code = GLU) 83 mg/dL 70-110 N BLOOD UREA NITROGEN (test code = BUN) 9 mg/dL 7-22 N CREATININE (test code = CREAT) 0.63 mg/dL 0.55-1.3 N BUN/CREATININE RATIO (test code = BUN/CREA) 14.3 10-20 N TOTAL PROTEIN (test code = PROT) 6.4 gram/dL 6.1-7.8 N ALBUMIN (test code = ALB) 3.2 g/dL 3.3-4.4 L GLOBULIN (test code = GLOB) 3.2 G/DL 1-10 N ALBUMIN/GLOBULIN RATIO (test code = A/G) 1.0 0.75-1.50 N CALCIUM (test code = CA) 9.1 mg/dL 8.0-10.5 N BILIRUBIN TOTAL (test code = BILT) 0.40 mg/dL 0.2-1.2 N SGOT/AST (test code = AST) 21 U/L 10-39 N SGPT/ALT (test code = ALT) 21 U/L 10-69 N ALKALINE PHOSPHATASE TOTAL (test code = ALKP) 43 U/L 50-139 L COMPREHENSIVE METABOLIC [id number] 15:36:00* Test Item Value Reference Range Interpretation Comments SODIUM (test code = NA) 139 mmol/L 128-145 N POTASSIUM (test code = K) 3.8 mmol/L 3.5-5.1 N CHLORIDE (test code = CL) 102.0 mmol/L 98-107 N CARBON DIOXIDE (test code = CO2) 28.3 mmol/L 22-29 N ANION GAP (test code = GAP) 13 mmol/L 10-20 N GLUCOSE (test code = GLU) 83 mg/dL 70-110 N BLOOD UREA NITROGEN (test code = BUN) 9 mg/dL 7-22 N CREATININE (test code = CREAT) 0.63 mg/dL 0.55-1.3 N BUN/CREATININE RATIO (test code = BUN/CREA) 14.3 10-20 N TOTAL PROTEIN (test code = PROT) gram/dL 6.4-8.2 ALBUMIN (test code = ALB) g/dL 3.4-5.0 GLOBULIN (test code = GLOB) G/DL 1-10 ALBUMIN/GLOBULIN RATIO (test code = A/G) 0.75-1.50 CALCIUM (test code = CA) 9.1 mg/dL 8.0-10.5 N BILIRUBIN TOTAL (test code = BILT) mg/dL 0.0-1.0 SGOT/AST (test code = AST) IUnit/L 15-37 SGPT/ALT (test code = ALT) IUnit/L 12-78 ALKALINE PHOSPHATASE TOTAL (test code = ALKP) IUnit/L 45-117 CBC W/AUTO [id number] 15:28:00* Test Item Value Reference Range Interpretation Comments WHITE BLOOD CELL (test code = WBC) 7.1 K/mm3 4.5-12.5 N RED BLOOD CELL (test code = RBC) 3.75 mill/mm3 3.7-5.2 N HEMOGLOBIN (test code = HGB) 10.8 gram/dL 11.5-15.5 L HEMATOCRIT (test code = HCT) 34.2 % 36.0-46.0 L MEAN CELL VOLUME (test code = MCV) 91.2 fL 80-98 N MEAN CELL HGB (test code = MCH) 28.8 picogram 27.0-33.0 N MEAN CELL HGB CONCETRATION (test code = MCHC) 31.6 gram/dL 33.0-36. 0 L RED CELL DISTRIBUTION WIDTH (test code = RDW) 11.9 % 11.6-16. 2 N RED CELL DISTRIBUTION WIDTH SD (test code = RDW-SD) 40.4 fL 37 .0-51.0 N PLATELET COUNT (test code = PLT) 287 K/mm3 150-450 N MEAN PLATELET VOLUME (test code = MPV) 8.2 fL 6.7-11.0 N NEUTROPHIL % (test code = NT%) 56.6 % 39.0-69.0 N LYMPHOCYTE % (test code = LY%) 29.6 % 25.0-55.0 N MONOCYTE % (test code = MO%) 11.7 % 0.0-10.0 H EOSINOPHIL % (test code = EO%) 1.1 % 0.0-5.0 N BASOPHIL % (test code = BA%) 0.6 % 0.0-1.0 N NEUTROPHIL # (test code = NT#) 4.00 K/mm3 1.8-7.7 N LYMPHOCYTE # (test code = LY#) 2.09 K/mm3 1.0-5.0 N MONOCYTE # (test code = MO#) 0.83 K/mm3 0-0.8 H EOSINOPHIL # (test code = EO#) 0.08 K/mm3 0.0-0.5 N BASOPHIL # (test code = BA#) 0.04 K/mm3 0.0-0.2 N MANUAL DIFF REQUIRED (test code = MDIFF) NO - XR FOOT 2 VIEWS [id number] 19:27:00 FAX: Lavell Soriano MD [phone] [place]: [place] St: REG Name: RACHID PAZ [facility] FSED : [birth year]/18 [birth year] Age/S: 53/F [address] [facility] Unit #: [id number] Loc: [facility] [address] Phys: Lavell Soriano MD [place], [place] [address] Acct: [id number] Dis Date: Status: REG ER PHONE #: Exam Date: 11/18/2018 1927 FAX #: Reason: pain EXAMS: CPT CODE: [id number] XR FOOT [address] [place] [id number] REASON FOR EXAM: pain EXAM ORDER DATE: 11/18/2018 7:04 PM Order brii Su: Lavell Soriano MD PROCEDURE: - XR FOOT 2 VIEWS RT COMPARISON: 06/12/2018 FINDINGS: 3 views of the right foot were obtained. The osseous structures are unremarkable in size and sh ape. The joint spaces are maintained. No evidence of fracture. The phalan ges are intact. The metatarsal and tarsal bones are unremarkable. Nonspe cific erosion of the head without 2nd and 3rd proximal phalanges. IMPRESSION: Nonspecific degenerative changes of the head of the 2nd and 3rd proximal phalanges, unchanged from previous exam. No acute findings at 1927 Reported and signed by: Venkat Barrios M.D. CC: Lavell Soriano MD Technologist: Nithin taylor Trnscrd Date/Time/By: 9 (1926) : By: Ann MarieVTL Orig Print D/T: S: 11/18/2018 (193) PAGE 1 Signed Report
--- NOTE | 2020-01-07 13:47 | Diagnostic Imaging Report ---
EXAMINATION: FINGER RT - HOPD INDICATION: Trauma COMPARISON: None FINDINGS: No acute fracture or dislocation. Alignment is anatomic. The soft tissues appear unremarkable. IMPRESSION: No acute osseous injury. Signed by: Jayce Miranda MD on 01/07/2020 1:43 PM
--- NOTE | 2020-01-07 14:11 | Emergency Department Note ---
History of Present Illnes History of Present Illness Chief Complaint: Extremity Trauma/Pain History of Present Illness This is a 54 year old female Chief Complaint Comment PT STATED SHE SLAMMED HER RIGHT 5TH FINGER IN THE DOOR 1 WEEK AGO AND IS STILL HAVING PAIN AND UNABLE TO STRAIGHTEN HER FINGER. . Historian: Patient Arrival Mode: Car Onset (how long ago): day(s) (5) Location: right little finger Quality: pain Radiation: non-radiation Severity: moderate Onset quality: sudden Duration (how long): day(s) (5) Timing of current episode: constant Progression: unchanged Chronicity: new Context: recent illness, recent surgery, recent immobilization, recent travel, trauma/injury, new medications, hx of DVT/PE, non-compliance w/ medications, other Relieving factors: none Exacerbating factors: none Associated symptoms: denies other symptoms Treatments prior to arrival: none Past Medical/Family History Physician Review I have reviewed the patient's past medical and family history. Any updates have been documented here. Past Medical History Recent Fever: No Clinical Suspicion of Infectio: No New/Unexplained Change in Ment: No Past Medical History: Hypertension, GERD, Hyperlipedemia Other Medical History: CHRONIC FOOT PAIN Other Surgery: FOOT SURGERY Social History Smoking Cessation: Never Smoker Counseling Performed: No Alcohol Use: None Any Illegal Drug Use: No TB Exposure/Symptoms: No Physically hurt or threatened: No Other Last Tetanus: UTD Any Pre-Existing Lines (PICC,: No Is patient up to date on immun: No Last Flu: YES Last Pneumovax: NO Review of Systems Review of Systems Constitutional: no symptoms EENTM: no symptoms Cardiovascular: no symptoms Respiratory: no symptoms Gastrointestinal: no symptoms Genitourinary: no symptoms Musculoskeletal: as per HPI Neurological: no symptoms Psychological: no symptoms Endocrine: no symptoms Hematological/Lymphatic: no symptoms Review of other systems All other systems reviewed and negative. Physical Exam Related Data Allergies: Coded Allergies: No Known Allergies (Unverified , 07/19/18) Triage Vital Signs Vital Signs Date Time Temp Pulse Resp B/P (MAP) Pulse Ox O2 Delivery O2 Flow Rate FiO2 01/07/20 13:20 99.2 81 17 165/93 100 Vital signs reviewed: Yes Physical Exam CONSTITUTIONAL Constitutional: well-developed, well-nourished HENT HENT: normocephalic, atraumatic, oropharynx clear/moist, nose normal HENT L/R: left ext ear normal, right ext ear normal EYES Eyes: PERRL, conjunctivae normal NECK Neck: ROM normal PULMONARY Pulmonary: effort normal, breath sounds normal CARDIOVASCULAR Cardiovascular: regular rhythm, heart sounds normal, capillary refill normal, normal rate GASTROINTESTINAL Abdominal: soft, nontender, bowel sounds normal GENITOURINARY Genitourinary: exam deferred SKIN Skin: warm, dry MUSCULOSKELETAL Musculoskeletal: tenderness (right little finger , unable to extend the distal phalanx) NEUROLOGICAL Neurological: alert, oriented x 3, no gross motor or sensory deficits PSYCHOLOGICAL Psychological: mood/affect normal, judgement normal Results Imaging Imaging results reviewed: Yes Critical Care Time Subsequent provider I assumed direction of critical care for this patient from another provider of my specialty. Assessment & Plan Assessment & Plan Final Impression: (1) Injury of extensor tendon of right hand (2) Acute pain due to trauma Assessment & Plan finger splint Depart Disposition: HOME, SELF-CARE Last Vital Signs Date Time Temp Pulse Resp B/P (MAP) Pulse Ox O2 Delivery O2 Flow Rate FiO2 01/07/20 13:20 99.2 81 17 165/93 100 Home Meds Reported Medications Lisinopril (LISINOPRIL) 10 Mg Tablet, 10 MG PO DAILY, #30 TAB 06/26/19 Esomeprazole Magnesium (NEXIUM) 40 Mg Suspdr.pkt, 40 MG PO DAILY 06/26/19 DARIO PACE MD January 07, 2020 14:11
== END 2020-01-07 14:16 | disposition home or self-care (01) ==
LOC: FSED 13:11
DX: S66.396A Other injury of extensor muscle, fascia and tendon of right little finger at wrist and hand level, initial encounter (principal); W23.1XXA Caught, crushed, jammed, or pinched between stationary objects, initial encounter; Y92.89 Other specified places as the place of occurrence of the external cause; I10 Essential (primary) hypertension; E78.5 Hyperlipidemia, unspecified; K21.9 Gastro-esophageal reflux disease without esophagitis
CPT/HCPCS: 99283

== ENCOUNTER 2020-01-26 14:36 | Emergency (ER) | payer OTHER ==
[~2020-01-26] VITALS: Ht 160 cm; Wt 66.7 kg
[~2020-01-26 14:36] MED LIST changes: -CEFAZOLIN SOD 1 GM/NS 50ML 50 ML IV ONE; -DEXAMETHASONE SOD PHOS INJ 4 MG/ML VIAL ONE; -FENTANYL CITRATE/PF 100MCG/2 ML INJ ONE; -KETOROLAC TROMETHAMINE 30 MG/ML VIAL ONE; -LIDOCAINE HCL 2% LOCAL INJ 5 ML SDV VIAL INJ ONE; -MIDAZOLAM HCL 2 MG/2 ML VIAL ONE; -MORPHINE SULFATE 2 MG/ML SYR 1ML ONE; -ONDANSETRON HCL INJ 2MG/ML 2ML 2 MG/ML VIAL ONE; -PROPOFOL IV EMULSION 10 MG/ML 20 ML VIAL ONE; -SEVOFLURANE INHAL SOLN 250 ML PEN BTL ONE; -TYLENOL WITH C1 EACH PO
--- NOTE | 2020-01-26 15:14 | NUR ---
Pt noted to be walking out of ER with spouse, without informing staff she was leaving, attempted to stop pt multiple times while walking out, walked out to parking lot asked why they were leaving and asked if there was something wrong, spouse stated No, sorry but thank you. Pt continued to walk out and proceeded to get into car. Dr. Obrien notified of interaction in parking lot.
--- NOTE | 2020-01-26 15:17 | Emergency Department Note ---
History of Present Illnes History of Present Illness Chief Complaint: wanted the orif pin placed in rgt 5th digit this am (by dr pena) to be taken out History of Present Illness This is a 54 year old female. Historian: Patient Arrival Mode: Car History limited by: condition of the patient (normal) Automobile Glass Technician Required: No Onset (how long ago): hour(s) (6) Location: rgt 5th digit Quality: sharp Radiation: Reports non-radiation Severity: moderate Onset quality: gradual Duration (how long): hour(s) (5) Timing of current episode: constant Progression: worsening Chronicity: recurrent Context: Denies recent illness, Denies recent surgery, Denies recent immobilization, Denies recent travel, Denies trauma/injury, Denies new medicati ons, Denies hx of DVT/PE, Denies non-compliance w/ medications Relieving factors: none Exacerbating factors: none Associated symptoms: Reports denies other symptoms Treatments prior to arrival: none Past Medical/Family History Physician Review I have reviewed the patient's past medical and family history. Any updates have been documented here. Past Medical History Recent Fever: No Clinical Suspicion of Infectio: No New/Unexplained Change in Ment: No Past Medical History: Hypertension, GERD, Hyperlipedemia Other Medical History: CHRONIC FOOT PAIN Other Surgery: FOOT SURGERY Social History Smoking Cessation: Current every day smoker Counseling Performed: No Alcohol Use: Social Any Illegal Drug Use: No TB Exposure/Symptoms: No Physically hurt or threatened: No Family History Family history of heart diseas: No Other Last Tetanus: UTD Any Pre-Existing Lines (PICC,: No Is patient up to date on immun: No Review of Systems Review of Systems Constitutional: Reports no symptoms EENTM: Reports no symptoms Cardiovascular: Reports no symptoms Respiratory: Reports no symptoms Gastrointestinal: Reports no symptoms Genitourinary: Reports no symptoms Musculoskeletal: Reports as per HPI, Reports joint pain Integumentary: Reports no symptoms Neurological: Reports no symptoms Psychological: Reports no symptoms Endocrine: Reports no symptoms Hematological/Lymphatic: Reports no symptoms Review of other systems: All other systems negative Physical Exam Related Data Allergies: Coded Allergies: No Known Allergies (Unverified , 07/19/18) Vital signs reviewed: Yes Physical Exam CONSTITUTIONAL Constitutional: Present well-developed, Present well-nourished HENT HENT: Present normocephalic, Present atraumatic, Present oropharynx clear/moist, Present nose normal HENT L/R: Present left ext ear normal, Present right ext ear normal EYES Eyes: Reports PERRL, Reports conjunctivae normal NECK Neck: Present ROM normal, Present supple PULMONARY Pulmonary: Present effort normal, Present breath sounds normal CARDIOVASCULAR Cardiovascular: Present regular rhythm, Present heart sounds normal, Present capillary refill normal, Present normal rate GASTROINTESTINAL Abdominal: Present soft, Present nontender, Present bowel sounds normal GENITOURINARY Genitourinary: Present exam deferred SKIN Skin: Present warm, Present dry MUSCULOSKELETAL Musculoskeletal: Present other (+intact snug dressing to rgt 5th digit/ +nvi) NEUROLOGICAL Neurological: Present alert, Present oriented x 3, Present no gross motor or sensory deficits PSYCHOLOGICAL Psychological: Present mood/affect normal, Present judgement normal Assessment & Plan Medical Decision Making MDM pt eloped after RN said said most likely she will not more narcotics since she has doctors that rx narcotic for chronic back pain Assessment & Plan Final Impression: (1) Eloped from emergency department (2) Drug-seeking behavior (3) Post-op pain Depart Disposition: ELOPED Home Meds Reported Medications Pantoprazole Sodium (PROTONIX) 20 Mg Tablet.dr, 40 MG PO DAILY, #30 TAB 01/21/20 Hydrocodone Bit/Acetaminophen (NORCO 10-325 TABLET) 1 Each Tablet, 1 TAB PO DAILY, TAB 01/21/20 Lisinopril (LISINOPRIL) 10 Mg Tablet, 10 MG PO HS, #30 TAB 06/26/19 Discontinued Reported Medications Esomeprazole Magnesium (NEXIUM) 40 Mg Suspdr.pkt, 40 MG PO DAILY 06/26/19 DEDRA AYALA Jan 26, 2020 15:17
[2020-01-26] MEDS ORDERED: TYLENOL WITH C1 EACH PO (15:54)
== END 2020-01-26 15:14 | disposition home or self-care (01) ==
LOC: FSED 14:36
DX: G89.18 Other acute postprocedural pain (principal); Z76.5 Malingerer [conscious simulation]; I10 Essential (primary) hypertension; K21.9 Gastro-esophageal reflux disease without esophagitis; G89.29 Other chronic pain
CPT/HCPCS: 99282

== ENCOUNTER → 2020-01-26 | Day surgery (SDC) | payer OTHER ==
[~2020-01-26] MED LIST changes: +CEFAZOLIN SOD 1 GM/NS 50ML 50 ML IV ONE; +DEXAMETHASONE SOD PHOS INJ 4 MG/ML VIAL ONE; +FENTANYL CITRATE/PF 100MCG/2 ML INJ ONE; +KETOROLAC TROMETHAMINE 30 MG/ML VIAL ONE; +LIDOCAINE HCL 2% LOCAL INJ 5 ML SDV VIAL INJ ONE; +MIDAZOLAM HCL 2 MG/2 ML VIAL ONE; +MORPHINE SULFATE 2 MG/ML SYR 1ML ONE; +NORCO 10-325 T1 EACH PO; +ONDANSETRON HCL INJ 2MG/ML 2ML 2 MG/ML VIAL ONE; +PROPOFOL IV EMULSION 10 MG/ML 20 ML VIAL ONE; +PROTONIX20 MG PO; +SEVOFLURANE INHAL SOLN 250 ML PEN BTL ONE; +TYLENOL WITH C1 EACH PO
[2020-01-26 08:25] VITALS: BP 139/89
--- NOTE | 2020-01-26 13:19 | Operative Report ---
DATE OF PROCEDURE: 01/26/2020 SURGEON: Jaison Mendes MD SURGERY TECHNICIAN: Alexis Cheng, certified PA. PREOPERATIVE DIAGNOSIS: Right 5th mallet finger. POSTOPERATIVE DIAGNOSIS: Right 5th mallet finger. PROCEDURE: Closed reduction percutaneous pinning, right 5th finger. INDICATIONS: The patient is a 54-year-old woman, who has a subacute right 5th mallet finger. The findings and options were discussed. She would like to have this fixed. The risks and benefits of a percutaneous pin fixation were discussed. All of her questions were answered. She states she understands and wishes to proceed. PROCEDURE IN DETAIL: The patient was brought to the operating room and placed under general anesthetic. Her right upper extremity was prepped and draped in a sterile manner. A preoperative time-out was performed. A C-arm image intensifier was used to assist in placing a 0.045 K-wire through the distal phalanx and across the DIP joint with the finger held in slight hyperextension. Intraoperative x-rays confirmed satisfactory positioning of the pin. The pin was cut short and capped. A sterile bandage was applied. She was extubated and transported to the recovery room in stable condition. There was no blood loss and all needle and sponge counts were correct. Jaison Mendes MD DR/JACK /[id number]
== END | disposition home or self-care (01) ==
LOC: OR 05:18
PROVIDERS: ATTEND Specialist
DX: M20.011 Mallet finger of right finger(s) (principal); I10 Essential (primary) hypertension; M54.5 Low back pain; K58.9 Irritable bowel syndrome, unspecified; Z01.810 Encounter for preprocedural cardiovascular examination; Z01.812 Encounter for preprocedural laboratory examination; Z11.59 Encounter for screening for other viral diseases
CPT/HCPCS: 26432; 81025; 93005; C1713; J0690; J1100; J1885; J2001; J2250; J2270; J2405; J2704; J3010; U0002; 76000

== ENCOUNTER → 2020-03-24 | Day surgery (SDC) | payer OTHER ==
--- NOTE | 2020-03-19 16:53 | Diagnostic Imaging Report ---
Examination: PA and lateral view of the chest. COMPARISON: None. INDICATION: Preoperative evaluation, podiatry DISCUSSION: Lines/tubes: None. Lungs: The lungs are well inflated and clear. No pneumonia or pulmonary edema. Pleura: No pleural effusion or pneumothorax. Heart and mediastinum: The heart and the mediastinum are unremarkable. Bones and soft tissues: No acute bony abnormalities. IMPRESSION: 1. No acute cardiopulmonary abnormalities. Signed by: Dr. Jose Hagen M.D. on 03/19/2020 4:50 PM
[~2020-03-24] MED LIST changes: +BUPIVACAINE HCL 0.5% INJ 30 ML VIAL INJ ONE; +CEFAZOLIN SOD 1 GM/NS 50ML 50 ML IV ONE; +DEXAMETHASONE SOD PHOS INJ 4 MG/ML VIAL ONE; +FENTANYL CITRATE/PF 100MCG/2 ML INJ ONE; +KETOROLAC TROMETHAMINE 30 MG/ML VIAL ONE; +LIDOCAINE HCL 2% LOCAL INJ 5 ML SDV VIAL INJ ONE; +MIDAZOLAM HCL 2 MG/2 ML VIAL ONE; +ONDANSETRON HCL INJ 2MG/ML 2ML 2 MG/ML VIAL ONE; +PROPOFOL IV EMULSION 10 MG/ML 20 ML VIAL ONE; +SEVOFLURANE INHAL SOLN 250 ML PEN BTL ONE; +TYLENOL WITH C1 EACH PO
--- NOTE | 2020-03-24 08:27 | Operative Report ---
DATE OF PROCEDURE: 03/24/2020 SURGEON: Hussein De DPM PREOPERATIVE DIAGNOSES: 1. Right foot heel spur. 2. 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 POSTOPERATIVE DIAGNOSES: 1. Right foot heel spur. 2. 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 PLANNED PROCEDURE: 1. Right excision of heel spur. 2. Right Cordova's nerve decompression. ANESTHESIA: General with a postoperative block consisting of 15 mL of 0.5% Marcaine plain mixed with 1 mL of dexamethasone phosphate. HEMOSTASIS: Pneumatic thigh tourniquet set at 350 mmHg for a total time of approximately 30 minutes. MATERIALS: A 3-0 nylon, 1 TLS drain, 3-0 Vicryl. ESTIMATED BLOOD LOSS: Less than 10 mL. PATHOLOGY: None. DESCRIPTION OF PROCEDURE: The patient was seen in the preoperative waiting room where the correct procedure and site were identified. The patient was brought to the operating room and placed on the operating table in supine position. General anesthesia was initiated. At this time, a well-padded pneumatic tourniquet was placed about the patient's right thigh. The right foot, ankle and leg were scrubbed, prepped, and draped in the usual aseptic manner. The right foot, ankle and leg were exsanguinated with an Esmarch bandage and the pneumatic thigh tourniquet was inflated to 350 mmHg for a total time of approximately 30 minutes. Attention was directed to the medial aspect of the patient's right foot where the previous surgical incision site was noted. The incision was made directly over the previous incision site approximately 5 cm in length on the medial inferior aspect of the right heel. The incision was then carried to subcutaneous tissue them from deep and underlying structures. All vital neurovascular structures were identified, retracted medially and laterally and all bleeders were cauterized or ligated as deemed necessary. It should be noted that moderate amount of scar tissue was noted in the subcutaneous tissue as well as in the level of the plantar fascial calcaneal insertion. This was debrided and excised from the operative table. Next utilizing Metzenbaum scissors, the plantar fascia was cut approximately 1/3 to 1[address] of the plantar fascia. The previously resected bone spur was further rasped to a smooth anatomic alignment, which was confirmed via intraoperative fluoroscopy. The wound was then copiously irrigated with sterile saline. Next, the incision site was carried out proximally into the medial inferior aspect of the heel toward the attachment of the adductor hallucis muscle belly, this was explored utilizing blunt dissection to allow for decompression of the tarsal tunnel as well as the tarsal canal. The distal aspect of the tarsal canal was explored and decompressed utilizing blunt dissection as well as electrocautery. The medial calcaneal nerve was isolated and freed of all adhesions and decompressed by blunt dissection to the adductor hallucis muscle belly as well as the distal aspect of the laciniate ligament. The wound was then copiously irrigated with sterile saline. Capsule and deep tissue were reapproximated with 3-0 Vicryl, subcutaneous tissue with 3-0 Vicryl and the skin was closed using a simple interrupted sutures with 3-0 nylon. Prior to wound closure, a TLS drain was placed and was noted to be functioning appropriately. The incision site was then dressed with Adaptic, 4x4s, Kerlix, Josesito wrap, and a postop shoe. The patient was transferred to the postop recovery room with vital signs stable and vascular status intact. The patient was monitored there for a short period of time before being sent home with the following written and oral instructions. 1. Keep the dressing clean, dry and intact. 2. The patient is to remain nonweightbearing to the right lower extremity to avoid any ambulation until being seen in the office. 3. The patient was given the office number and instructed to contact us if any problems arise. ULISES Vargas/JACK /[id number]
[2020-03-24 08:30] VITALS: BP 113/89
== END | disposition home or self-care (01) ==
LOC: OR 05:25
PROVIDERS: ATTEND Podiatrist Foot & Ankle Surgery
DX: M77.31 Calcaneal spur, right foot (principal); G57.81 Other specified mononeuropathies of right lower limb; I10 Essential (primary) hypertension; D64.9 Anemia, unspecified; K21.9 Gastro-esophageal reflux disease without esophagitis; M54.2 Cervicalgia; M54.9 Dorsalgia, unspecified; Z01.810 Encounter for preprocedural cardiovascular examination; Z01.812 Encounter for preprocedural laboratory examination; Z01.818 Encounter for other preprocedural examination; Z11.59 Encounter for screening for other viral diseases
CPT/HCPCS: 28035; 28119; 64704; 71046; 93005; J0690; J1100; J1885; J2001; J2405; J2704; U0002

== ENCOUNTER 2020-11-28 13:54 | Emergency (ER) | payer OTHER ==
[~2020-11-28] VITALS: Ht 160 cm; Wt 79.0 kg
[~2020-11-28 13:54] MED LIST changes: -BUPIVACAINE HCL 0.5% INJ 30 ML VIAL INJ ONE; -CEFAZOLIN SOD 1 GM/NS 50ML 50 ML IV ONE; -DEXAMETHASONE SOD PHOS INJ 4 MG/ML VIAL ONE; -FENTANYL CITRATE/PF 100MCG/2 ML INJ ONE; -KETOROLAC TROMETHAMINE 30 MG/ML VIAL ONE; -LIDOCAINE HCL 2% LOCAL INJ 5 ML SDV VIAL INJ ONE; -MIDAZOLAM HCL 2 MG/2 ML VIAL ONE; -ONDANSETRON HCL INJ 2MG/ML 2ML 2 MG/ML VIAL ONE; -PROPOFOL IV EMULSION 10 MG/ML 20 ML VIAL ONE; -SEVOFLURANE INHAL SOLN 250 ML PEN BTL ONE
[2020-11-28] MEDS ORDERED: SUCRALFATE1 GM PO (14:15)
[2020-11-28] MEDS ORDERED: GABAPENTIN600 MG (14:15)
[2020-11-28 18:02] VITALS: BP 101/58
== END 2020-11-28 17:57 | disposition home or self-care (01) ==
LOC: FSED 14:25
DX: G89.18 Other acute postprocedural pain (principal); M79.89 Other specified soft tissue disorders; R60.9 Edema, unspecified; D64.9 Anemia, unspecified; I10 Essential (primary) hypertension; K21.9 Gastro-esophageal reflux disease without esophagitis
CPT/HCPCS: 80053; 85025; 85610; 93971; 99283

== ENCOUNTER 2021-04-18 13:53 | Emergency (ER) | payer OTHER ==
[~2021-04-18] VITALS: Ht 160 cm; Wt 79.9 kg
[~2021-04-18 13:53] MED LIST changes: +GABAPENTIN600 MG; +SUCRALFATE1 GM PO
[2021-04-18] MEDS ORDERED: KETOROLAC TROMETHAMINE 60 MG/2 ML VIAL IM ONE (14:45)
== END 2021-04-18 16:17 | disposition home or self-care (01) ==
LOC: FSED 14:31
DX: S30.1XXA Contusion of abdominal wall, initial encounter (principal); M54.2 Cervicalgia; M25.561 Pain in right knee; I10 Essential (primary) hypertension; K21.9 Gastro-esophageal reflux disease without esophagitis; Z79.899 Other long term (current) drug therapy; V43.52XA Car driver injured in collision with other type car in traffic accident, initial encounter
CPT/HCPCS: 70450; 71250; 72125; 73562; 74176; 96372; 99283; J1885

== ENCOUNTER 2021-05-16 11:28 | Emergency (ER) | payer OTHER ==
[~2021-05-16] VITALS: Ht 160 cm; Wt 78.2 kg
[2021-05-16] MEDS ORDERED: KETOROLAC TROMETHAMINE 60 MG/2 ML VIAL IM STA (11:44)
[2021-05-16] MEDS ORDERED: KETOROLAC TROMETHAMINE 60 MG/2 ML VIAL ONE (11:58)
== END 2021-05-16 11:56 | disposition home or self-care (01) ==
LOC: FSED 11:39
DX: G89.11 Acute pain due to trauma (principal); I10 Essential (primary) hypertension; K21.9 Gastro-esophageal reflux disease without esophagitis; M79.673 Pain in unspecified foot; M54.9 Dorsalgia, unspecified; G89.29 Other chronic pain
CPT/HCPCS: 96372; 99282; J1885